=== PATIENT | female | born 1960 | race Caucasian/White ===

== ENCOUNTER 2017-06-30 07:11 | Day surgery (SDC) | payer MEDICARE ==
[~2017-06-30 07:11] MED LIST: Cefuroxime 10 MG/ML SYRINGE EYERT SCH; Lidocaine 1% PF 2 ML SDV INJECT SCH; Pilocarpine 4% Ophth Soln 15 ML Bot EYERT SCH; Polymyxin B/Trimethoprim 10 ML Bottle EYERT SCH
[2017-06-30] MEDS: Ofloxacin 0.3% Ophth Soln 5 ML Bottle EYERT SCH ×3 (07:17→08:32)
[2017-06-30] MEDS: Brimonidine 0.2% Ophth Soln 5 ML Bottle EYERT SCH ×3 (07:22→08:32)
[2017-06-30] MEDS: Phenylephrine 2.5% Ophth Soln 2 ML Bot EYERT SCH ×5 (07:29→08:17)
--- NOTE | 2017-06-30 07:38 | PCM.PREANE ---
Preanesthetic Assessment - Anesthesia/Transfusion/Family Hx Anesthesia History: Prior Anesthesia Without Reaction Family History of Anesthesia Reaction: No Transfusion History: No Prior Transfusion(s) Intubation History: Unknown - Review of Systems General: No Symptoms Pulmonary: No Symptoms Cardiovascular: No Symptoms Gastrointestinal: No Symptoms Neurological: No Symptoms Other: Reports: None - Physical Assessment NPO Status Date: 06/29/17 NPO Status Time: 17:00 Pulse: 58 O2 Sat by Pulse Oximetry: 92 Respiratory Rate: 16 Blood Pressure: 114/70 Temperature: 97.9 C Vital Signs: Last Vital Signs Temp 36.6 C 06/30/17 07:10 Pulse 58 L 06/30/17 07:10 Resp 16 06/30/17 07:10 BP 114/70 06/30/17 07:10 Pulse Ox 92 L 06/30/17 07:10 Height: 1.63 m Weight: 90.718 kg ASA Class: 2 Mental Status: Alert & Oriented x3 Airway Class: Mallampati = 1 Dentition: Reports: Dentures (upper/lower) Thyro-Mental Finger Breadths: 3 Mouth Opening Finger Breadths: 3 ROM/Head Extension: Full Lungs: Wheezing (exp wheeze noted bilat, clears with coughing) Cardiovascular: Regular Rate, Regular Rhythm - Allergies Allergies/Adverse Reactions: Allergies Allergy/AdvReac Type Severity Reaction Status Date / Time buspirone HCl [From BuSpar] Allergy Swelling Verified 06/29/17 14:21 carbamazepine [From Tegretol] Allergy Other Verified 06/29/17 14:21 diclofenac [From Arthrotec] Allergy Cannot Verified 06/29/17 14:21 Remember divalproex sodium Allergy Other Verified 06/29/17 14:21 [From Depakote] donepezil HCl [From Aricept] Allergy Other Verified 06/29/17 14:21 gabapentin [From Neurontin] Allergy Other Verified 06/29/17 14:21 memantine HCl [From Namenda] Allergy Other Verified 06/29/17 14:21 misoprostol [From Arthrotec] Allergy Cannot Verified 06/29/17 14:21 Remember Sulfa (Sulfonamide Allergy Other Verified 06/29/17 14:21 Antibiotics) acetaminophen [From Percocet] AdvReac Nausea and Verified 06/29/17 14:21 Vomiting oxycodone HCl [From Percocet] AdvReac Nausea and Verified 06/29/17 14:21 Vomiting propoxyphene napsylate AdvReac Nausea and Verified 06/29/17 14:21 [From Rogelio] Vomiting - Anesthesia Plan Beta Urbano: Propranolol Med Last Dose Date: 06/29/17 Med Last Dose Time: 07:00 - Acknowledgements Anesthesia Type Planned: MAC Pt an Appropriate Candidate for the Planned Anesthesia: Yes Alternatives and Risks of Anesthesia Discussed w Pt/Guardian: Yes Pt/Guardian Understands and Agrees with Anesthesia Plan: Yes PreAnesthesia Questionnaire HEENT History: Reports: Impaired Vision Cardiovascular History: Reports: None Respiratory History: Reports: Asthma, COPD, SOB (with exertion) Gastrointestinal History: Reports: None Musculoskeletal History: Reports: None Neurological History: Reports: 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, "couple years ago"), Migraines (takes propranolol), Other (See Below) Other Neuro History: early onset cognitive disorder Psychiatric History: Reports: None Other Psychiatric History: early cognitive inhaler Endocrine/Metabolic History: Reports: None Hematologic History: Reports: None Immunologic History: Reports: None Oncologic (Cancer) History: Reports: None - Infectious Disease History Infectious Disease History: Reports: MRSA - Past Surgical History Head Surgeries/Procedures: Reports: None HEENT Surgical History: Reports: None, Tonsillectomy Cardiovascular Surgical History: Reports: None Respiratory Surgical History: Reports: None GI Surgical History: Reports: Cholecystectomy Female Surgical History: Reports: Section Endocrine Surgical History: Reports: None Neurological Surgical History: Reports: None Musculoskeletal Surgical History: Reports: None Oncologic Surgical History: Reports: None Dermatological Surgical History: Reports: None - SUBSTANCE USE Smoking Status *Q: Current Every Day Smoker Recreational Drug Use History: No - HOME MEDS Home Medications: Home Meds ClonazePAM [KlonoPIN] 0.5 mg PO BEDTIME 04/12/15 [History] Escitalopram [Lexapro] 20 mg PO DAILY 04/12/15 [History] Propranolol [Inderal LA] 80 mg PO DAILY 04/12/15 [History] lamoTRIgine [Lamictal] 400 mg PO BEDTIME 04/12/15 [History] Montelukast [Singulair] 10 mg PO DAILY 06/29/17 [History] SUMAtriptan [Imitrex] 50 mg PO ASDIRECTED PRN 06/29/17 [History] Tiotropium Br/Olodaterol HCl [Stiolto Respimat Inhal [place]] 1 puff INH DAILY [History] - CURRENT (IN HOUSE) MEDS Current Meds: Current Medications Brimonidine Tartrate (Alphagan 0.2% Ophth Soln) 0 ml EYERT ASDIRECTED PINA Last Admin: 06/30/17 07:22 Dose: 1 drop Cefuroxime Sodium (Zinacef) 0 mg EYERT ASDIRECTED PINA Lidocaine HCl (Xylocaine-Mpf 1%) 1 ml INJECT ASDIRECTED [facility] Ofloxacin (Ocuflox 0.3% Ophth Soln) 0 ml EYERT ASDIRECTED PINA Stop: 06/30/17 16:00 Last Admin: 06/30/17 07:17 Dose: 1 drop Phenylephrine HCl (Adithya-Synephrine 2.5% Ophth Soln) 0 ml EYERT ASDIRECTED PINA Last Admin: 06/30/17 07:29 Dose: 1 drop Pilocarpine HCl (Pilocar 4% Ophth Soln) 0 ml EYERT ASDIRECTED PIAN Tetracaine HCl (Tetracaine 0.5% Steri-Unit Tila) 0 ml EYERT ASDIRECTED PINA Tropicamide (Mydriacyl 1% Ophth Soln) 0 ml EYERT ASDIRECTED PINA Stop: 07/03/17 07:01 Discontinued Medications Polymyxin/Trimethoprim Sulfate (Polytrim Ophth Soln) 0 ml EYERT ASDIRECTED PINA
[2017-06-30] MEDS: Tetracaine HCl/PF 0.5% 4 ML Bottle EYERT SCH ×2 (08:10→08:48)
--- NOTE | 2017-06-30 08:35 | PCM48HPAN ---
Post Anesthesia Note - EVALUATION WITHIN 48HRS OF ANESTHETIC Vital Signs in Normal Range: Yes Patient Participated in Evaluation: Yes Respiratory Function Stable: Yes Airway Patent: Yes Cardiovascular Function Stable: Yes Hydration Status Stable: Yes Pain Control Satisfactory: Yes Nausea and Vomiting Control Satisfactory: Yes Mental Status Recovered: Yes
[2017-06-30 08:49] VITALS: BP 112/66
== END 2017-06-30 08:44 | disposition home or self-care (01) ==
LOC: JD.SDS 07:11
PROVIDERS: ATTEND Ophthalmology
DX: H25.813 Combined forms of age-related cataract, bilateral (principal); H16.103 Unspecified superficial keratitis, bilateral; H16.223 Keratoconjunctivitis sicca, not specified as Sjogren's, bilateral; H02.834 Dermatochalasis of left upper eyelid; H02.831 Dermatochalasis of right upper eyelid; J44.9 Chronic obstructive pulmonary disease, unspecified; F17.200 Nicotine dependence, unspecified, uncomplicated; Z86.73 Personal history of transient ischemic attack (TIA), and cerebral infarction without residual deficits; Z90.89 Acquired absence of other organs; Z90.49 Acquired absence of other specified parts of digestive tract; Z79.899 Other long term (current) drug therapy; Z88.8 Allergy status to other drugs, medicaments and biological substances; Z88.2 Allergy status to sulfonamides; Z88.5 Allergy status to narcotic agent; Z88.6 Allergy status to analgesic agent
CPT/HCPCS: 66984; C1780; J0697; A9270-GY

== ENCOUNTER 2017-09-11 15:08 | Emergency (ER) | payer MEDICARE, MEDICAID, SELFPAY ==
[2017-09-11 15:22] VITALS: BP 120/68
[2017-09-11] MEDS ORDERED: Amoxicillin/Clavulanate K 875-125 MG Tab PO ONE (15:47)
--- NOTE | 2017-09-11 15:53 | EDM.PDOC ---
ED HPI GENERAL MEDICAL PROBLEM - General Chief Complaint: Bite:Animal, Insect Stated Complaint: DOG BITE Time Seen by Provider: 09/11/17 15:37 Source of Information: Reports: Patient History Limitations: Reports: No Limitations - History of Present Illness INITIAL COMMENTS - FREE TEXT/NARRATIVE: Patient is a 57-year-old female who presents to the ED complaining of a dog bite to the inner aspect of the right calf. This happened approximately an hour prior to admission to the ED. Patient states her 2 dogs which are both [place] Spaniels were fighting for food and bit her on the inner aspect of the right lower leg when trying to split them up. She states one of her dogs his up-to- date with immunizations. The other dog she is unsure. She states there is no chance of having rabies. Both dogs have been acting appropriately. No change in behavior noted. Both dogs can be monitored. Pain is localized. She has minimal bleeding present. Immunizations up-to-date. She has no difficulty with walking. Right Lower Leg Pain Score (Numeric/FACES): 6 - Related Data Allergies Allergy/AdvReac Type Severity Reaction Status Date / Time buspirone HCl [From BuSpar] Allergy Swelling Verified 09/11/17 15:17 carbamazepine [From Tegretol] Allergy Other Verified 09/11/17 15:17 diclofenac [From Arthrotec] Allergy Cannot Verified 09/11/17 15:17 Remember divalproex sodium Allergy Other Verified 09/11/17 15:17 [From Depakote] donepezil HCl [From Aricept] Allergy Other Verified 09/11/17 15:17 gabapentin [From Neurontin] Allergy Other Verified 09/11/17 15:17 memantine HCl [From Namenda] Allergy Other Verified 09/11/17 15:17 misoprostol [From Arthrotec] Allergy Cannot Verified 09/11/17 15:17 Remember Sulfa (Sulfonamide Allergy Other Verified 09/11/17 15:17 Antibiotics) acetaminophen [From Percocet] AdvReac Nausea and Verified 09/11/17 15:17 Vomiting oxycodone HCl [From Percocet] AdvReac Nausea and Verified 09/11/17 15:17 Vomiting propoxyphene napsylate AdvReac Nausea and Verified 09/11/17 15:17 [From Darvocet-N] Vomiting Home Meds: Home Meds ClonazePAM [KlonoPIN] 0.5 mg PO BEDTIME 04/12/15 [History] Escitalopram [Lexapro] 20 mg PO DAILY 04/12/15 [History] Propranolol [Inderal LA] 80 mg PO DAILY 04/12/15 [History] lamoTRIgine [Lamictal] 200 mg PO BEDTIME 04/12/15 [History] Montelukast [Singulair] 10 mg PO DAILY 06/29/17 [History] SUMAtriptan [Imitrex] 50 mg PO ASDIRECTED PRN 06/29/17 [History] Tiotropium Br/Olodaterol HCl [Stiolto Respimat Inhal Pana] 1 puff INH DAILY [History] Amoxicillin/Clavulanate K [Augmentin 875-125 MG] 1 tab PO BID #20 tablet [Rx] Past Medical History HEENT History: Reports: Impaired Vision Cardiovascular History: Reports: None Respiratory History: Reports: Asthma, COPD, SOB Gastrointestinal History: Reports: None Musculoskeletal History: Reports: None Neurological History: Reports: CVA, Migraines, Other (See Below) Other Neuro History: early onset cognitive disorder Psychiatric History: Reports: None Other Psychiatric History: early cognitive inhaler Endocrine/Metabolic History: Reports: None Hematologic History: Reports: None Immunologic History: Reports: None Oncologic (Cancer) History: Reports: None - Infectious Disease History Infectious Disease History: Reports: MRSA - Past Surgical History Head Surgeries/Procedures: Reports: None HEENT Surgical History: Reports: None, Tonsillectomy Cardiovascular Surgical History: Reports: None Respiratory Surgical History: Reports: None GI Surgical History: Reports: Cholecystectomy Female Surgical History: Reports: Section Endocrine Surgical History: Reports: None Neurological Surgical History: Reports: None Musculoskeletal Surgical History: Reports: None Oncologic Surgical History: Reports: None Dermatological Surgical History: Reports: None Social & Family History - Family History Family Medical History: Noncontributory - Tobacco Use Smoking Status *Q: Current Every Day Smoker Years of Tobacco use: 25 Packs/Tins Daily: 0.5 - Caffeine Use Caffeine Use: Reports: None - Recreational Drug Use Recreational Drug Use: Yes Drug Use in Last 12 Months: No Recreational Drug Type: Reports: Marijuana/Hashish ED ROS GENERAL - Review of Systems Review Of Systems: ROS reveals no pertinent complaints other than HPI. ED EXAM, ANIMAL BITE - Physical Exam Exam: See Below Exam Limited By: No Limitations General Appearance: Alert, WD/WN, No Apparent Distress Ears: Hearing Grossly Normal Nose: Normal Inspection Throat/Mouth: Normal Voice, No Airway Compromise Neck: Normal Inspection, Supple Respiratory/Chest: No Respiratory Distress, No Accessory Muscle Use Cardiovascular: Normal Peripheral Pulses, Regular Rate, Rhythm Peripheral Pulses: 3+: Posterior Tibial (R) Extremities: Other (Approximate 4 cm x 4 cm circular pattern to the right inner calf with a few puncture wounds with no bleeding present from a dog bite by his fingers panel. Faint bruising noted around this area. No bony tenderness with palpation. No bony abdomen abnormalities noted. No sensory/motor deficits distally. She offers no additional plans with palpation of the remaining portion of the extremity. There is a small bruise noted to the lateral aspect of the right lower leg secondary to previous dog bite earlier this morning. ) Neurological: Alert, Oriented, CN II-XII Intact, Normal Cognition, No Motor/ Sensory Deficits Psychiatric: Normal Affect, Normal Mood Skin Exam: Normal Color, Warm/Dry Course - Vital Signs Last Recorded V/S: Last Vital Signs Temp 98.2 F 09/11/17 15:20 Pulse 67 09/11/17 15:20 Resp 18 09/11/17 15:20 BP 120/68 09/11/17 15:20 Pulse Ox 93 L 09/11/17 15:20 - Orders/Labs/Meds Meds: Medications Discontinued Medications Generic Name Dose Route Start Last Admin Trade Name Antonioq PRN Reason Stop Dose Admin Amoxicillin/Clavulanate Potassium 1 tab 09/11/17 15:47 09/11/17 16:05 Augmentin 875 Mg/125 Mg PO 09/11/17 15:48 1 tab ONETIME ONE Administration - Re-Assessments/Exams Free Text/Narrative Re-Assessment/Exam: Wounds cleansed by nursing staff. Ordered Augmentin 875 mg by mouth 1. Will discharge patient home with instructions as documented. Departure - Departure Time of Disposition: 15:52 Disposition: Home, Self-Care 01 Condition: Good Clinical Impression: Dog bite of calf Qualifiers: Encounter type: initial encounter Laterality: right Qualified Code(s): S81.851A - Open bite, right lower leg, initial encounter - Discharge Information Prescriptions: Amoxicillin/Clavulanate K [Augmentin 875-125 MG] 1 tab PO BID #20 tablet Instructions: Animal Bite Referrals: Holly Turcios MD [Primary Care Provider] - Forms: ED Department Discharge Additional Instructions: Take the Augmentin as prescribed. Cleanse site twice daily with soap and water, pat dry, reapply Triple Antibiotic ointment and dressing. Keep area clean and dry. Follow-up with PCP a conclusion of therapy to ensure resolution. Return to the ED if you develop any new or worsening symptoms. Continue to monitor dog with unknown vaccination status. See a vet in the next week or so to have the immunizations updated.
== END 2017-09-11 16:00 | disposition home or self-care (01) ==
LOC: JD.ED 15:08
DX: S81.851A Open bite, right lower leg, initial encounter (principal); F17.210 Nicotine dependence, cigarettes, uncomplicated; Z88.8 Allergy status to other drugs, medicaments and biological substances; Z88.2 Allergy status to sulfonamides; Z88.6 Allergy status to analgesic agent; Z88.5 Allergy status to narcotic agent; Z79.899 Other long term (current) drug therapy; W54.0XXA Bitten by dog, initial encounter
CPT/HCPCS: 99283; A9270

== ENCOUNTER 2018-10-09 04:52 | Inpatient (IN) | payer MEDICARE ==
[2018-10-09] MEDS ORDERED: Dextrose 5%-0.9% NaCl 1,000 ML IV SCH (05:00)
[2018-10-09] MEDS ORDERED: Albuterol/Ipratropium 3.0-0.5 MG/3 ML Neb Soln NEB ONE (05:01)
--- NOTE | 2018-10-09 05:05 | EDM.PDOC ---
ED HPI GENERAL MEDICAL PROBLEM - General Chief Complaint: Respiratory Problem Stated Complaint: [facility] Time Seen by Provider: 10/09/18 04:58 Source of Information: Reports: Patient, EMS History Limitations: Reports: Respiratory Distress - History of Present Illness INITIAL COMMENTS - FREE TEXT/NARRATIVE: 58-year-old female presents to the ED per [place] [facility]. She reports that she's been ill for about 3-1/2 days with development of a nonproductive cough and increasing shortness of breath. She has not slept well at all the last 2 nights not at all tonight. She considers herself gurgling in her chest. She has a history of COPD with asthma component. She uses a hand-held metered-dose albuterol inhaler without relief last few days. She usually smokes a pack per day has been only able to smoke 2-5 cigarettes per day the last 2 days. Appetite has been poor. She has developed fever and chills with rigors last day. Denies any nausea vomiting or diarrhea. Has not been able to expectorate any phlegm. Has not been around anybody that she knows with influenza. She does not have any pleuritic chest pain. No history of coronary disease or congestive failure. Paramedics report her O2 sats were 85% upon their arrival and she was placed on a nonrebreather at 10 L/m. In the ED she was switched to nasal cannula at 4 L/m. Is achieved O2 sats of 88%. Blood pressure is 149/79. She does not feel warm to palpation. Patient has been using Robitussin cough medicine at home for the last 2 days without much relief. Onset: Gradual Onset Date: 10/06/18 Duration: Day(s):, Getting Worse Location: Reports: Chest (Increased dyspnea on minimal exertion with associated associated orthopnea and PND. Nonproductive cough with associated development of rigors and chills. No defined fever) Quality: Reports: Other (Chills/rigors with) Severity: Severe (nonproductive cough getting worse over the last 3-1/2 days severe hypoxia on room air) Improves with: Reports: None Worsens with: Reports: Movement Context: Denies: Activity, Exercise, Lifting, Sick Contact, Trauma, Other Associated Symptoms: Reports: Chest Pain (Nonproductive), Cough, Fever/Chills, Loss of Appetite, Malaise, Shortness of Breath, Weakness. Denies: No Other Symptoms, Confusion ( central chest from coughing so much), cough w sputum, Diaphoresis, Headaches (Chills with no defined fever), Nausea/Vomiting, Rash, Seizure, Syncope Treatments [employer]: Reports: Other (see below) (None.) - Related Data Allergies Allergy/AdvReac Type Severity Reaction Status Date / Time buspirone HCl [From BuSpar] Allergy Swelling Verified 10/09/18 05:02 carbamazepine [From Tegretol] Allergy Other Verified 10/09/18 05:02 diclofenac [From Arthrotec] Allergy Cannot Verified 10/09/18 05:02 Remember divalproex sodium Allergy Other Verified 10/09/18 05:02 [From Depakote] gabapentin [From Neurontin] Allergy Other Verified 10/09/18 05:02 misoprostol [From Arthrotec] Allergy Cannot Verified 10/09/18 05:02 Remember Sulfa (Sulfonamide Allergy Other Verified 10/09/18 05:02 Antibiotics) acetaminophen [From Percocet] AdvReac Nausea and Verified 10/09/18 05:02 Vomiting oxycodone HCl [From Percocet] AdvReac Nausea and Verified 10/09/18 05:02 Vomiting propoxyphene napsylate AdvReac Nausea and Verified 10/09/18 05:02 [From Darvocet-N] Vomiting Home Meds: Home Meds ClonazePAM [KlonoPIN] 0.5 mg PO BEDTIME 04/12/15 [History] Propranolol [Inderal LA] 80 mg PO DAILY 04/12/15 [History] lamoTRIgine [Lamictal] 200 mg PO BEDTIME 04/12/15 [History] Montelukast [Singulair] 10 mg PO BEDTIME 06/29/17 [History] Tiotropium Br/Olodaterol HCl [Stiolto Respimat Inhal Webb] 1 puff INH BEDTIME 06/29/17 [History] Escitalopram [Lexapro] 20 mg PO DAILY 03/29/18 [History] Fluticasone Furoate [Arnuity Ellipta] 1 dose INH ASDIRECTED 03/29/18 [History] SUMAtriptan [Imitrex] 50 mg PO ASDIRECTED PRN 03/29/18 [History] Past Medical History HEENT History: Reports: Impaired Vision Cardiovascular History: Reports: None Respiratory History: Reports: Asthma, COPD (Not on oxygen at home. Still smoking usually a pack per day.), SOB Gastrointestinal History: Reports: None Musculoskeletal History: Reports: None Neurological History: Reports: CVA, Migraines, Other (See Below) Other Neuro History: early onset cognitive disorder Psychiatric History: Reports: None Other Psychiatric History: early cognitive inhaler Endocrine/Metabolic History: Reports: None Hematologic History: Reports: None Immunologic History: Reports: None Oncologic (Cancer) History: Reports: None - Infectious Disease History Infectious Disease History: Reports: MRSA - Past Surgical History Head Surgeries/Procedures: Reports: None HEENT Surgical History: Reports: None, Tonsillectomy Cardiovascular Surgical History: Reports: None Respiratory Surgical History: Reports: None GI Surgical History: Reports: Cholecystectomy Female Surgical History: Reports: Section Endocrine Surgical History: Reports: None Neurological Surgical History: Reports: None Musculoskeletal Surgical History: Reports: None Oncologic Surgical History: Reports: None Dermatological Surgical History: Reports: None Social & Family History - Family History Family Medical History: Noncontributory - Caffeine Use Caffeine Use: Reports: None - Living Situation & Occupation Living situation: Reports: Occupation: Employed ED ROS GENERAL - Review of Systems Review Of Systems: See Below Constitutional: Reports: Chills, Malaise, Weakness, Fatigue, Decreased Appetite HEENT: Reports: Glasses Respiratory: Reports: Shortness of Breath, Wheezing, Cough. Denies: Pleuritic Chest Pain, Sputum, Hemoptysis Cardiovascular: Reports: Chest Pain (Central chest pain from coughing so much), Blood Pressure Problem, Dyspnea on Exertion, Lightheadedness. Denies: Claudication, Edema (From coughing at times.), Orthopnea Endocrine: Reports: Fatigue GI/Abdominal: Reports: Decreased Appetite : Reports: No Symptoms Musculoskeletal: Reports: Joint Pain (Knees hips back at times) Skin: Reports: No Symptoms Neurological: Reports: No Symptoms Psychiatric: Reports: No Symptoms Hematologic/Lymphatic: Reports: No Symptoms Immunologic: Reports: No Symptoms ED EXAM, GENERAL - Physical Exam Exam: See Below Exam Limited By: Respiratory Distress General Appearance: Alert, WD/WN, Moderate Distress (Can speak in 3-5 word sentences.), Other (O2 sats are 85% on room air 90% on 4 L. Blood pressure stable at 149/79. Heart rate is 75 in sinus. Respiratory rate is 25.) Eye Exam: Bilateral Eye: Normal Inspection (No scleral icterus.) Ears: Normal TMs Throat/Mouth: Normal Oropharynx, Normal Voice, Other (Tongue is very dry and coated.). No: Normal Inspection, Normal Lips, Normal Teeth Head: Atraumatic, Normocephalic Neck: Normal Inspection, Supple, Non-Tender, Full Range of Motion. No: Lymphadenopathy (L), Lymphadenopathy (R) Respiratory/Chest: Respiratory Distress (Tachypnea at rest 25-28/m with O2 sats of 85% on room air.), Decreased Breath Sounds, Rhonchi (Decreased breath sounds to both lower lung amador worse on the right as compared to the left.), Wheezing ( I appreciated more on the right posterior lung field on the left. effuse wheezing on expiration throughout posterior lung amador. ). No: Lungs Clear, Normal Breath Sounds, Chest Non-Tender Cardiovascular: Normal Peripheral Pulses, Regular Rate, Rhythm, No Edema, No Gallop, No Murmur, No Rub Peripheral Pulses: 2+: Posterior Tibial (L), Posterior Tibial (R), Dorsalis Pedis (L), Dorsalis Pedis (R) GI/Abdominal: Normal Bowel Sounds, Soft, Non-Tender, No Organomegaly, No Abnormal Bruit, No Mass, Pelvis Stable, Distended (Slightly distended and tympanitic to percussion in the upper abdomen compatible with mild aerophagia.) Back Exam: Normal Inspection, Full Range of Motion. No: CVA Tenderness (L), CVA Tenderness (R) Extremities: Normal Inspection, Normal Range of Motion, Non-Tender Neurological: Alert, Oriented, CN II-XII Intact, Normal Cognition Psychiatric: Normal Affect Skin Exam: Warm, Dry, Intact, Normal Color, No Rash EKG INTERPRETATION EKG Date: 10/09/18 Time: 05:10 Rhythm: NSR (Markedly wandering baseline due to the patient having rigors.) Rate (Beats/Min): 68 [place]: LAD-Left [place] Deviation (-65) P-Wave: Enlarged (Consider biatrial enlargement) QRS: Other (There is decreased voltage in both limb and precordial leads. Is early R-wave transition in V2 suggestive of right ventricular hypertrophy pattern. 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 Cannot rule out ischemia.) EKG Interpretation Comments: Abnormal ECG. Course - Vital Signs Last Recorded V/S: Last Vital Signs Temp 36.9 C 10/09/18 04:57 Pulse 74 10/09/18 04:57 Resp 25 H 10/09/18 04:57 BP 149/79 H 10/09/18 04:57 Pulse Ox 89 L 10/09/18 05:09 - Orders/Labs/Meds Orders: Active Orders 24 hr Category Date Time Status BIPAP Adult [RT BiPAP/CPAP] [RC] ASDIRECTED Care 10/09/18 05:49 Active EKG Documentation Completion [RC] STAT Care 10/09/18 04:59 Active Oxygen Therapy [RC] ASDIRECTED Care 10/09/18 05:00 Active RT Aerosol Therapy [RC] ASDIRECTED Care 10/09/18 05:01 Active Chest 1V Frontal [CR] Stat Exams 10/09/18 04:59 Taken C-REACTIVE PROTEIN [CHEM] Stat Lab 10/09/18 05:18 Results CKMB [CHEM] Stat Lab 10/09/18 05:18 Results COMPREHENSIVE METABOLIC PN,CMP [CHEM] Stat Lab 10/09/18 05:18 Results CULTURE BLOOD [BC] Stat Lab 10/09/18 05:18 Received CULTURE BLOOD [BC] Stat Lab 10/09/18 05:30 Received MAGNESIUM [CHEM] Stat Lab 10/09/18 05:18 Results MYCOPLASMA PNEUMONIAE IGM AB [CHEM] Stat Lab 10/09/18 05:18 Results PRO B-TYPE NATRIUR PEPT,BNPPRO [CHEM] Stat Lab 10/09/18 05:18 Received TROPONIN I [CHEM] Stat Lab 10/09/18 05:18 Results Dextrose 5%-0.9% NaCl [Dextrose 5%-Normal Saline] 1,000 Med 10/09/18 05:00 Active ml IV ASDIRECTED Levofloxacin/Dextrose 5%-Water [Levaquin in D5W 750 MG/ Med 10/09/18 05:47 Active 150 ML] 750 mg Premix Bag 1 bag IV ONETIME Blood Culture x2 Reflex Set [OM.PC] Stat Oth 10/09/18 05:00 Ordered Medication Orders Dextrose/Sodium Chloride (Dextrose 5%-Normal Saline) 1,000 mls @ 999 mls/hr IV ASDIRECTED PINA Last Admin: 10/09/18 05:29 Dose: 999 mls/hr Levofloxacin/Dextrose 750 mg/ (Premix) 150 mls @ 100 mls/hr IV ONETIME ONE Stop: 10/09/18 07:16 Last Admin: 10/09/18 05:51 Dose: 100 mls/hr Labs: Laboratory Tests 10/09/18 10/09/18 10/09/18 Range/Units 05:15 05:18 05:18 WBC 10.46 H (3.98-10.04) K/mm3 RBC 5.11 (3.98-5.22) M/mm3 Hgb 15.9 H (11.2-15.7) gm/L Hct 48.6 H (34.1-44.9) % MCV 95.1 H (79.4-94.8) fl MCH 31.1 (25.6-32.2) pg MCHC 32.7 (32.2-35.5) g/dl RDW Std Deviation 52.8 H (36.4-46.3) fL Plt Count 223 (182-369) K/mm3 MPV 9.3 L (9.4-12.3) fl Neutrophils % (Manual) 72 H (40-60) % Band Neutrophils % 0 (0-10) % Lymphocytes % (Manual) 16 L (20-40) % Atypical Lymphs % 0 % Monocytes % (Manual) 8 (2-10) % Eosinophils % (Manual) 2 (0.7-5.8) % Basophils % (Manual) 2 H (0.1-1.2) Platelet Estimate Adequate RBC Morph Comment Normal Puncture Site Lt radial ABG pH 7.42 (7.35-7.45) ABG pCO2 37.4 (35.0-45.0) mmHg ABG pO2 50.0 L (80.0-100.0) mmHg ABG HCO3 23.9 (22.0-26.0) meq/L ABG O2 Saturation 88.7 L (96.0-97.0) % ABG Base Excess 0.3 (-2-2.0) Nabil Test Positive A-a Gradient 159 mmHg O2 Delivery Device Cannula Oxygen Flow Rate 5.0 FiO2 40.00 (21.00-100.00) % Blood Gas Comments Sodium 140 (136-145) mEq/L Potassium 4.3 (3.5-5.1) mEq/L Chloride 103 (98-107) mEq/L Carbon Dioxide 28 (21-32) mEq/L Anion Gap 13.3 (5-15) BUN 9 (7-18) mg/dL Creatinine 0.9 (0.55-1.02) mg/dL Est Cr Clr Drug Dosing 59.55 mL/min Estimated GFR (MDRD) > 60 (>60) mL/min BUN/Creatinine Ratio 10.0 L (14-18) Glucose 132 H (74-106) mg/dL Lactic Acid (0.4-2.0) mmol/L Calcium 9.1 (8.5-10.1) mg/dL Magnesium 1.6 L (1.8-2.4) mg/dl Total Bilirubin 0.4 (0.2-1.0) mg/dL AST 25 (15-37) U/L ALT 27 (14-59) U/L Alkaline Phosphatase 98 (46-116) U/L CK-MB (CK-2) < 0.5 (0-3.6) ng/ml Troponin I < 0.017 (0.00-0.056) ng/mL C-Reactive Protein 4.7 H* (<1.0) mg/dL Total Protein 7.6 (6.4-8.2) g/dl Albumin 3.3 L (3.4-5.0) g/dl Globulin 4.3 gm/dL Albumin/Globulin Ratio 0.8 L (1-2) 10/09/18 10/09/18 Range/Units 05:30 06:30 WBC (3.98-10.04) K/mm3 RBC (3.98-5.22) M/mm3 Hgb (11.2-15.7) gm/L Hct (34.1-44.9) % MCV (79.4-94.8) fl MCH (25.6-32.2) pg MCHC (32.2-35.5) g/dl RDW Std Deviation (36.4-46.3) fL Plt Count (182-369) K/mm3 MPV (9.4-12.3) fl Neutrophils % (Manual) (40-60) % Band Neutrophils % (0-10) % Lymphocytes % (Manual) (20-40) % Atypical Lymphs % % Monocytes % (Manual) (2-10) % Eosinophils % (Manual) (0.7-5.8) % Basophils % (Manual) (0.1-1.2) Platelet Estimate RBC Morph Comment Puncture Site Rt radial ABG pH 7.38 (7.35-7.45) ABG pCO2 37.4 (35.0-45.0) mmHg ABG pO2 66.0 L (80.0-100.0) mmHg ABG HCO3 21.4 L (22.0-26.0) meq/L ABG O2 Saturation 94.5 L (96.0-97.0) % ABG Base Excess -2.9 L (-2-2.0) Nabil Test A-a Gradient mmHg O2 Delivery Device Bipap Oxygen Flow Rate 8.0 FiO2 (21.00-100.00) % Blood Gas Comments Bipap 10/5 Sodium (136-145) mEq/L Potassium (3.5-5.1) mEq/L Chloride (98-107) mEq/L Carbon Dioxide (21-32) mEq/L Anion Gap (5-15) BUN (7-18) mg/dL Creatinine (0.55-1.02) mg/dL Est Cr Clr Drug Dosing mL/min Estimated GFR (MDRD) (>60) mL/min BUN/Creatinine Ratio (14-18) Glucose (74-106) mg/dL Lactic Acid 1.2 (0.4-2.0) mmol/L Calcium (8.5-10.1) mg/dL Magnesium (1.8-2.4) mg/dl Total Bilirubin (0.2-1.0) mg/dL AST (15-37) U/L ALT (14-59) U/L Alkaline Phosphatase (46-116) U/L CK-MB (CK-2) (0-3.6) ng/ml Troponin I (0.00-0.056) ng/mL C-Reactive Protein (<1.0) mg/dL Total Protein (6.4-8.2) g/dl Albumin (3.4-5.0) g/dl Globulin gm/dL Albumin/Globulin Ratio (1-2) Meds: Medications Generic Name Dose Route Start Last Admin Trade Name Freq PRN Reason Stop Dose Admin Dextrose/Sodium Chloride 1,000 mls @ 999 mls/hr 10/09/18 05:00 10/09/18 05:29 Dextrose 5%-Normal Saline IV 999 mls/hr ASDIRECTED PINA Administration Levofloxacin/Dextrose 750 mg/ 150 mls @ 100 mls/hr 10/09/18 05:47 10/09/18 05 :51 Premix IV 10/09/18 07:16 100 mls/hr ONETIME ONE Administration Discontinued Medications Generic Name Dose Route Start Last Admin Trade Name Freq PRN Reason Stop Dose Admin Albuterol/Ipratropium 3 ml 10/09/18 05:01 10/09/18 05:09 Duoneb 3.0-0.5 Mg/3 Ml NEB 10/09/18 05:02 3 ml ONETIME ONE Administration Oseltamivir Phosphate 75 mg 10/09/18 05:53 10/09/18 06:00 Tamiflu PO 10/09/18 05:54 75 mg ONETIME ONE Administration - Radiology Interpretation Free Text/Narrative:: 58-year-old female presents to the ED with a 3-1/2 day history of development of upper respiratory tract infection.. Patient has a nonproductive cough and is unable to expectorate any sputum. By history she has COPD and is on 2 inhalers at home one is steroid and one is to try opium. She does not use a home nebulizer machine. She is developed riders/chills the last day and a half. Decreased appetite. She has been unable to sleep all night tonight due to orthopnea and dyspnea at rest. She does not use home oxygen. Paramedics arrived and found her O2 sats to 85% on room air. Examination reveals rhonchi throughout the right posterior lung field primarily slightly at the left base. There is diffuse expiratory wheezes throughout all lung amador. Decreased air entry to the lower lung amador bilaterally of over 30%. History suggests COPD exacerbation. Afebrile at the time of exam. Plan ABGs will be done. At present she is on 4 L/m by nasal cannula to achieve O2 sats of 90%. Her pressure is stable. Septic workup including lactic acid ordered. Blood cultures 2. Suspecting pneumonia right lower lobe. Patient will be treated with a DuoNeb nebulizer treatment. - Re-Assessments/Exams Free Text/Narrative Re-Assessment/Exam: 10/09/18 05:40 ABGs are done. PH is 7.42 with a PCO2 of 37.4. PO2 is 50. Saturations are 89% on 5 L by nasal cannula. By definition she is in respiratory failure. We'll see if she can stand a trial of BiPAP. We'll start at least with 50% FiO2. 10/09/18 05:45 Chest x-ray done portably reveals slightly hyperinflated lung amador. There is possibly a very early pneumonia developing in the right lower lung field. This could also represent mild atelectasis. Cardiac silhouette is normal. I will start her on Levaquin 750 mg IV. 10/09/18 05:53 patient's investigations came back positive for influenza type B. This would explain why her cough is nonproductive. We will start her on Tamiflu 75 mg by mouth at this time. No further labs are yet available. 10/09/18 06:23 White count is 10.46. Differential pending. Hemoglobin is 15.9 with hematocrit of 48.6 suggesting some degree of hemoconcentration. She is also a smoker. Platelet count is 223,000. MCV is mildly elevated at 95.1. Sodium is 140 with a potassium of 4.3. Chloride is 103 with a bicarbonate 28. Anion gap is 13.3. BUN is 9 with a creatinine of 0.9. GFR is greater than 60. Glucose 132. Lactic acid 1.2. Calcium is 9.1. Magnesium slightly low at 1.6. Liver function is normal. CK-MB fraction is less than 0.5 troponin is less than 0.017. C-reactive protein is 4.7. Total protein is 7.6 with an albumin fraction of 3.3. Mycoplasma pneumonia titer is pending. O2 sats are staying around 93% on BiPAP. ABGs will be repeated at 0630 hrs. 10/09/18 06:48 Differential on the white count is now available 72% neutrophils no bands cells reported in 16% lymphocytes. Second ABG done on BiPAP shows a pH of 7.38 with a PCO2 of 37.4. PO2 is up to 66 from 50. Bicarbonate is 21.4 saturations are 94.5%. BiPAP is set at 10/5. I will discuss case with it solutions architect hospitalist Dr. Martin with a view to placing her in the ICU 10/09/18 06:51 I have spoken with Dr. Martni and he has accepted care. Patient be transferred to the ICU when appropriate staff and bed are available. Departure - Departure Time of Disposition: 07:15 Disposition: Admitted As Inpatient 67 Condition: Serious Clinical Impression: Influenza, bronchopneumonia, Nicotine addiction Respiratory failure with hypoxia Qualifiers: Chronicity: acute Qualified Code(s): J96.01 - Acute respiratory failure with hypoxia COPD (chronic obstructive pulmonary disease) Qualifiers: Chronic bronchitis type: unspecified - Discharge Information *PRESCRIPTION DRUG MONITORING PROGRAM REVIEWED*: Not Applicable *COPY OF PRESCRIPTION DRUG MONITORING REPORT IN PATIENT SONIA: Not Applicable Referrals: PCP,None [Primary Care Provider] - Forms: ED Department Discharge - My Orders Last 24 Hours: My Active Orders 10/09/18 04:59 EKG Documentation Completion [RC] STAT Chest 1V Frontal [CR] Stat 10/09/18 05:00 Oxygen Therapy [RC] ASDIRECTED Dextrose 5%-0.9% NaCl [Dextrose 5%-Normal Saline] 1,000 ml IV ASDIRECTED Blood Culture x2 Reflex Set [OM.PC] Stat 10/09/18 05:01 RT Aerosol Therapy [RC] ASDIRECTED 10/09/18 05:18 C-REACTIVE PROTEIN [CHEM] Stat CKMB [CHEM] Stat COMPREHENSIVE METABOLIC PN,CMP [CHEM] Stat CULTURE BLOOD [BC] Stat MAGNESIUM [CHEM] Stat MYCOPLASMA PNEUMONIAE IGM AB [CHEM] Stat PRO B-TYPE NATRIUR PEPT,BNPPRO [CHEM] Stat TROPONIN I [CHEM] Stat 10/09/18 05:30 CULTURE BLOOD [BC] Stat 10/09/18 05:47 Levofloxacin/Dextrose 5%-Water [Levaquin in D5W 750 MG/150 ML] 750 mg Premix Bag 1 bag IV ONETIME 10/09/18 05:49 BIPAP Adult [RT BiPAP/CPAP] [RC] ASDIRECTED - Assessment/Plan Last 24 Hours: My Active Orders 10/09/18 04:59 EKG Documentation Completion [RC] STAT Chest 1V Frontal [CR] Stat 10/09/18 05:00 Oxygen Therapy [RC] ASDIRECTED Dextrose 5%-0.9% NaCl [Dextrose 5%-Normal Saline] 1,000 ml IV ASDIRECTED Blood Culture x2 Reflex Set [OM.PC] Stat 10/09/18 05:01 RT Aerosol Therapy [RC] ASDIRECTED 10/09/18 05:18 C-REACTIVE PROTEIN [CHEM] Stat CKMB [CHEM] Stat COMPREHENSIVE METABOLIC PN,CMP [CHEM] Stat CULTURE BLOOD [BC] Stat MAGNESIUM [CHEM] Stat MYCOPLASMA PNEUMONIAE IGM AB [CHEM] Stat PRO B-TYPE NATRIUR PEPT,BNPPRO [CHEM] Stat TROPONIN I [CHEM] Stat 10/09/18 05:30 CULTURE BLOOD [BC] Stat 10/09/18 05:47 Levofloxacin/Dextrose 5%-Water [Levaquin in D5W 750 MG/150 ML] 750 mg Premix Bag 1 bag IV ONETIME 10/09/18 05:49 BIPAP Adult [RT BiPAP/CPAP] [RC] ASDIRECTED
[2018-10-09] MEDS ORDERED: Levofloxacin/Dextrose 5%-Water 750 MG in Premix Bag 1 BAG IV ONE (05:47)
[2018-10-09] MEDS ORDERED: Oseltamivir 75 MG Cap PO ONE (05:53)
--- NOTE | 2018-10-09 06:55 | CR ---
Chest: Portable view of the chest was obtained. Comparison: Prior chest x-ray of 04/12/15. Heart size and mediastinum are within normal limits. Previous study showed a nodular density within the right upper lung which appears stable and on current exam has the appearance of costochondral calcification. Lungs are clear with no acute parenchymal change. Bony structures are grossly intact. Impression: 1. Nothing acute is seen on portable chest x-ray. Diagnostic code #2
[2018-10-09] MEDS ORDERED: Acetaminophen 325 MG Tab PO PRN (08:14)
[2018-10-09] MEDS ORDERED: SUMAtriptan 50 MG Tab PO PRN (10:03)
[2018-10-09] MEDS ORDERED: Metoprolol Tartrate 5 MG/5 ML SDV IVPUSH PRN (10:04)
[2018-10-09] MEDS ORDERED: hydrALAZINE 20 MG/ML SDV IVPUSH PRN (10:04)
[2018-10-09] MEDS ORDERED: Acetaminophen/HYDROcodone 325-5 MG Tab PO PRN (10:08)
[2018-10-09] MEDS ORDERED: Morphine 2 MG/ML Syringe IVPUSH PRN (10:08)
[2018-10-09] MEDS ORDERED: LORazepam 2 MG/ML SDV IV PRN (10:08)
[2018-10-09] MEDS ORDERED: Ondansetron 4 MG/2 ML SDV IV PRN (10:08)
[2018-10-09] MEDS ORDERED: Bisacodyl 5 MG Tab PO PRN (10:11)
[2018-10-09] MEDS ORDERED: Docusate Sodium 100 MG Cap PO PRN (10:11)
[2018-10-09] MEDS ORDERED: Polyethylene Glycol 3350 Powder 17 GM Packet PO PRN (10:11)
[2018-10-09] MEDS ORDERED: Azithromycin 250 MG in Sodium Chloride 0.9% 250 ML IV ONE (11:00)
[2018-10-09] MEDS: Albuterol/Ipratropium 3.0-0.5 MG/3 ML Neb Soln NEB PRN (11:18)
[2018-10-09] MEDS ORDERED: Magnesium Sulfate/Water 2 GM in Premix Bag 1 BAG IV ONE (13:00)
--- NOTE | 2018-10-09 15:01 | PCM.HP ---
H&P History of Present Illness - General Date of Service: 10/09/18 Admit Problem/Dx: Admission Diagnosis/Problem Admission Diagnosis/Problem Respiratory failure with hypoxia Source of Information: Patient, Family, Old Records, Provider, RN Notes Reviewed History Limitations: Reports: Respiratory Distress - History of Present Illness Initial Comments - Free Text/Narative: This is a 58 yo white female with past medical hx/o Impaired Vision, COPD, Hx/o CVA, Migraines, Hx/o Cognitive Disorder, Allergy, and Nicotine Dependence who comes in for worsening shortness of breath with minimal exertion associated with orthopnea, PND, malaise, weakness, nonproductive cough and chills that started for the past few days. Her symptoms worsen with movement or exertion. She uses her routine home inhalers as well as Robitussin but w/o much improvement. Her last PFT was a little over 2 years ago, done in [place]. She smokes about 1/2ppd since she was 17 years of age. Prior to coming in to ED, she was found by paramedics with an O2 sat of 85% at home. Her initial work up in ED shows a CBC remarkable for WBC of 10.46, Hgb of 15.9, Hct of 48.9, MCV of 95.1, RDW of 52.8, MPV of 9.3, Neutrophils of 72% and Basophils of 2%. Her initial ABG shows a pH of 7.42, pCO2 of 37.4, pO2 of 50, HCO3 of 23.9 with an O2 sat of 88% on 15L of NC. Her Chemistry is significant for BS of 132, Mg of 1.6, CRP of 4.7, and Albumin of 3.3. Her CRX shows nothing acute is seen. She is Influenza B screening positive. Patient is being admitted for influenza B treatment and acute COPD exacerbation. Lower Back Pain Score (Numeric/FACES): 4 - Related Data Allergies/Adverse Reactions: Allergies Allergy/AdvReac Type Severity Reaction Status Date / Time buspirone HCl [From BuSpar] Allergy Swelling Verified 10/09/18 05:02 carbamazepine [From Tegretol] Allergy Other Verified 10/09/18 05:02 diclofenac [From Arthrotec] Allergy Cannot Verified 10/09/18 05:02 Remember divalproex sodium Allergy Other Verified 10/09/18 05:02 [From Depakote] gabapentin [From Neurontin] Allergy Other Verified 10/09/18 05:02 misoprostol [From Arthrotec] Allergy Cannot Verified 10/09/18 05:02 Remember Sulfa (Sulfonamide Allergy Other Verified 10/09/18 05:02 Antibiotics) oxycodone HCl [From Percocet] AdvReac Nausea and Verified 10/09/18 05:02 Vomiting propoxyphene napsylate AdvReac Nausea and Verified 10/09/18 05:02 [From Darvocet-N] Vomiting Home Medications: Home Meds ClonazePAM [KlonoPIN] 0.5 mg PO BEDTIME 04/12/15 [History] lamoTRIgine [Lamictal] 400 mg PO BEDTIME 04/12/15 [History] Montelukast [Singulair] 10 mg PO BEDTIME 06/29/17 [History] Tiotropium Br/Olodaterol HCl [Stiolto Respimat Inhal [place]] 2 puff INH BEDTIME 06/29/17 [History] Escitalopram [Lexapro] 30 mg PO DAILY 03/29/18 [History] Fluticasone Furoate [Arnuity Ellipta] 1 dose INH DAILY 03/29/18 [History] SUMAtriptan [Imitrex] 50 mg PO ASDIRECTED PRN 03/29/18 [History] Albuterol [Ventolin HFA] 2 inh PO Q4H PRN 10/09/18 [History] Propranolol HCl [Inderal Xl] 120 mg PO DAILY 10/09/18 [History] Past Medical History HEENT History: Reports: Cataract, Impaired Vision Cardiovascular History: Reports: None Respiratory History: Reports: Asthma, COPD Gastrointestinal History: Reports: None Genitourinary History: Reports: Urinary Incontinence Musculoskeletal History: Reports: None Neurological History: Reports: CVA, Migraines, Other (See Below) Other Neuro History: early onset cognitive disorder Psychiatric History: Reports: None, Anxiety, Dementia, Depression, Panic Attack Other Psychiatric History: early cognitive inhaler Endocrine/Metabolic History: Reports: Diabetes, Gestational Hematologic History: Reports: None Immunologic History: Reports: None Oncologic (Cancer) History: Reports: None - Infectious Disease History Infectious Disease History: Reports: Chicken Pox, Measles, MRSA - Past Surgical History Head Surgeries/Procedures: Reports: None HEENT Surgical History: Reports: None, Adenoidectomy, Cataract Surgery, Oral Surgery, Tonsillectomy Cardiovascular Surgical History: Reports: None Respiratory Surgical History: Reports: None GI Surgical History: Reports: Cholecystectomy Female Surgical History: Reports: Section Endocrine Surgical History: Reports: None Neurological Surgical History: Reports: None Musculoskeletal Surgical History: Reports: None Oncologic Surgical History: Reports: None Dermatological Surgical History: Reports: None Social & Family History - Family History Family Medical History: Noncontributory Respiratory: Reports: COPD Other Respiratory Family Hisory: father hx - Tobacco Use Smoking Status *Q: Current Every Day Smoker Years of Tobacco use: 20 Packs/Tins Daily: 0.3 Second Hand Smoke Exposure: Yes - Caffeine Use Caffeine Use: Reports: None - Alcohol Use Days Per Week of Alcohol Use: 0 - Recreational Drug Use Recreational Drug Use: Yes Drug Use in Last 12 Months: No - Living Situation & Occupation Living situation: Reports: Occupation: Employed H&P Review of Systems - Review of Systems: Review Of Systems: See Below General: Reports: Chills, Fatigue. Denies: Fever HEENT: Reports: No Symptoms Pulmonary: Reports: Shortness of Breath, Wheezing, Cough Cardiovascular: Reports: Dyspnea on Exertion. Denies: Orthopnea, Lightheadedness, Blood Pressure Problem Gastrointestinal: Denies: Abdominal Pain, Nausea, Vomiting Genitourinary: Reports: No Symptoms Musculoskeletal: Reports: No Symptoms Skin: Denies: Cyanosis, Mottled, Pallor, Diaphoresis, Bruising Psychiatric: Denies: Depression, Anxiety, Agitation, Hallucinations Neurological: Denies: Confusion, Pre-Existing Deficit, Weakness, Gait Disturbance Hematologic/Lymphatic: Reports: No Symptoms Immunologic: Reports: No Symptoms Exam - Exam Exam: See Below - Vital Signs Vital Signs: Last Vital Signs Temp 37.2 C 10/09/18 12:00 Pulse 67 10/09/18 12:08 Resp 20 10/09/18 12:00 BP 96/77 10/09/18 12:08 Pulse Ox 92 L 10/09/18 12:08 Weight: 90.718 kg - Exam Quality Assessment: Supplemental Oxygen General: Alert, Oriented, Cooperative, Other (Obese) HEENT: Conjunctiva Clear, EACs Clear, Hearing Intact, Nares Patent, Normal Nasal Septum, Pupils Equal, Pupils Reactive Neck: Supple, Trachea Midline, Other (accessory muscle use) Lungs: Decreased Breath Sounds, Rhonchi, Wheezing. No: Normal Respiratory Effort Cardiovascular: Tachycardia GI/Abdominal Exam: Normal Bowel Sounds, Soft, Non-Tender, No Organomegaly, No Distention, No Abnormal Bruit (Female) Exam: Deferred Rectal (Female) Exam: Deferred Back Exam: Normal Inspection, Decreased Range of Motion Extremities: Normal Inspection, Normal Range of Motion, Non-Tender, No Pedal Edema, Normal Capillary Refill Peripheral Pulses: 2+: Posterior Tibial (L), Posterior Tibial (R), Dorsalis Pedis (L), Dorsalis Pedis (R) Skin: Warm, Dry, Intact Neuro Extensive - Mental Status: Other (deferred) Neuro Extensive - Motor, Sensory, Reflexes: Other (not appropriate; she is currently on BIPAP) Psychiatric: Alert, Normal Affect, Normal Mood - Patient Data Lab Results Last 24 hrs: Laboratory Results - last 24 hr 10/09/18 10/09/18 10/09/18 Range/Units 05:15 05:18 05:18 WBC 10.46 H (3.98-10.04) K/mm3 RBC 5.11 (3.98-5.22) M/mm3 Hgb 15.9 H (11.2-15.7) gm/L Hct 48.6 H (34.1-44.9) % MCV 95.1 H (79.4-94.8) fl MCH 31.1 (25.6-32.2) pg MCHC 32.7 (32.2-35.5) g/dl RDW Std Deviation 52.8 H (36.4-46.3) fL Plt Count 223 (182-369) K/mm3 MPV 9.3 L (9.4-12.3) fl Neutrophils % (Manual) 72 H (40-60) % Band Neutrophils % 0 (0-10) % Lymphocytes % (Manual) 16 L (20-40) % Atypical Lymphs % 0 % Monocytes % (Manual) 8 (2-10) % Eosinophils % (Manual) 2 (0.7-5.8) % Basophils % (Manual) 2 H (0.1-1.2) Platelet Estimate Adequate RBC Morph Comment Normal Puncture Site Lt radial ABG pH 7.42 (7.35-7.45) ABG pCO2 37.4 (35.0-45.0) mmHg ABG pO2 50.0 L (80.0-100.0) mmHg ABG HCO3 23.9 (22.0-26.0) meq/L ABG O2 Saturation 88.7 L (96.0-97.0) % ABG Base Excess 0.3 (-2-2.0) Nabil Test Positive A-a Gradient 159 mmHg O2 Delivery Device Cannula Oxygen Flow Rate 5.0 FiO2 40.00 (21.00-100.00) % Blood Gas Comments Sodium 140 (136-145) mEq/L Potassium 4.3 (3.5-5.1) mEq/L Chloride 103 (98-107) mEq/L Carbon Dioxide 28 (21-32) mEq/L Anion Gap 13.3 (5-15) BUN 9 (7-18) mg/dL Creatinine 0.9 (0.55-1.02) mg/dL Est Cr Clr Drug Dosing 59.55 mL/min Estimated GFR (MDRD) > 60 (>60) mL/min BUN/Creatinine Ratio 10.0 L (14-18) Glucose 132 H (74-106) mg/dL Lactic Acid (0.4-2.0) mmol/L Calcium 9.1 (8.5-10.1) mg/dL Magnesium 1.6 L (1.8-2.4) mg/dl Total Bilirubin 0.4 (0.2-1.0) mg/dL AST 25 (15-37) U/L ALT 27 (14-59) U/L Alkaline Phosphatase 98 (46-116) U/L CK-MB (CK-2) < 0.5 (0-3.6) ng/ml Troponin I < 0.017 (0.00-0.056) ng/mL C-Reactive Protein 4.7 H* (<1.0) mg/dL NT-Pro-B Natriuret Pep (0-125) pg/mL Total Protein 7.6 (6.4-8.2) g/dl Albumin 3.3 L (3.4-5.0) g/dl Globulin 4.3 gm/dL Albumin/Globulin Ratio 0.8 L (1-2) Mycoplasma pneumon IgM Negative (NEGATIVE) 10/09/18 10/09/18 10/09/18 Range/Units 05:18 05:30 06:30 WBC (3.98-10.04) K/mm3 RBC (3.98-5.22) M/mm3 Hgb (11.2-15.7) gm/L Hct (34.1-44.9) % MCV (79.4-94.8) fl MCH (25.6-32.2) pg MCHC (32.2-35.5) g/dl RDW Std Deviation (36.4-46.3) fL Plt Count (182-369) K/mm3 MPV (9.4-12.3) fl Neutrophils % (Manual) (40-60) % Band Neutrophils % (0-10) % Lymphocytes % (Manual) (20-40) % Atypical Lymphs % % Monocytes % (Manual) (2-10) % Eosinophils % (Manual) (0.7-5.8) % Basophils % (Manual) (0.1-1.2) Platelet Estimate RBC Morph Comment Puncture Site Rt radial ABG pH 7.38 (7.35-7.45) ABG pCO2 37.4 (35.0-45.0) mmHg ABG pO2 66.0 L (80.0-100.0) mmHg ABG HCO3 21.4 L (22.0-26.0) meq/L ABG O2 Saturation 94.5 L (96.0-97.0) % ABG Base Excess -2.9 L (-2-2.0) Nabil Test A-a Gradient mmHg O2 Delivery Device Bipap Oxygen Flow Rate 8.0 FiO2 (21.00-100.00) % Blood Gas Comments Bipap 10/5 Sodium (136-145) mEq/L Potassium (3.5-5.1) mEq/L Chloride (98-107) mEq/L Carbon Dioxide (21-32) mEq/L Anion Gap (5-15) BUN (7-18) mg/dL Creatinine (0.55-1.02) mg/dL Est Cr Clr Drug Dosing mL/min Estimated GFR (MDRD) (>60) mL/min BUN/Creatinine Ratio (14-18) Glucose (74-106) mg/dL Lactic Acid 1.2 (0.4-2.0) mmol/L Calcium (8.5-10.1) mg/dL Magnesium (1.8-2.4) mg/dl Total Bilirubin (0.2-1.0) mg/dL AST (15-37) U/L ALT (14-59) U/L Alkaline Phosphatase (46-116) U/L CK-MB (CK-2) (0-3.6) ng/ml Troponin I (0.00-0.056) ng/mL C-Reactive Protein (<1.0) mg/dL NT-Pro-B Natriuret Pep 69 (0-125) pg/mL Total Protein (6.4-8.2) g/dl Albumin (3.4-5.0) g/dl Globulin gm/dL Albumin/Globulin Ratio (1-2) Mycoplasma pneumon IgM (NEGATIVE) Result Diagrams: 10/10/18 05:30 10/10/18 05:30 Pb Results Last 24 hrs: Microbiology 10/09/18 05:07 Influenza Type A Antigen Screen - Final Nasal Aspirate, Unspecified NEGATIVE INFLUENZA A VIRUS AG Influenza Type B Antigen Screen - Final Positive Influenza B Ag Problem List Initiated/Reviewed/Updated: Yes Orders Last 24hrs: Active Orders 24 hr Category Date Time Status Admission Status [Patient Status] [ADT] Routine ADT 10/09/18 06:54 Active Antiembolic Devices [RC] BID Care 10/09/18 10:10 Active BIPAP Adult [RT BiPAP/CPAP] [RC] ASDIRECTED Care 10/09/18 05:49 Active Cardiac Monitoring [RC] CONTINUOUS Care 10/09/18 10:09 Active Height and Weight [RC] 04 Care 10/09/18 10:08 Active Intake and Output [RC] 04,16 Care 10/09/18 10:09 Active Oxygen Therapy [RC] PRN Care 10/09/18 10:08 Active RT Aerosol Therapy [RC] ASDIRECTED Care 10/09/18 05:01 Active Up With Assistance [RC] ASDIRECTED Care 10/09/18 10:08 Active Up ad Cassy [RC] ASDIRECTED Care 10/09/18 10:08 Active VTE/DVT Education [RC] BID Care 10/09/18 10:08 Active Vital Signs [RC] Q4HR Care 10/09/18 10:08 Active Consult to Case Management/Manager Area [CONS] Cons 10/09/18 10:11 Active Routine Consult to Neck Cutter [CONS] Routine Cons 10/09/18 10:11 Active Consult to Spiritual Care [CONS] Routine Cons 10/09/18 10:11 Active OT Evaluation and Treatment [CONS] Routine Cons 10/09/18 10:11 Active PT Evaluation and Treatment [CONS] Routine Cons 10/09/18 10:11 Active Heart Healthy Diet [DIET] Diet 10/09/18 Breakfast Active BASIC METABOLIC PANEL,BMP [CHEM] AM Lab 10/10/18 05:11 Ordered BASIC METABOLIC PANEL,BMP [CHEM] AM Lab 10/11/18 05:11 Ordered BASIC METABOLIC PANEL,BMP [CHEM] AM Lab 10/12/18 05:11 Ordered C-REACTIVE PROTEIN [CHEM] AM Lab 10/10/18 05:11 Ordered C-REACTIVE PROTEIN [CHEM] AM Lab 10/11/18 05:11 Ordered C-REACTIVE PROTEIN [CHEM] AM Lab 10/12/18 05:11 Ordered CBC WITH AUTO DIFF [HEME] AM Lab 10/10/18 05:11 Ordered CBC WITH AUTO DIFF [HEME] AM Lab 10/11/18 05:11 Ordered CBC WITH AUTO DIFF [HEME] AM Lab 10/12/18 05:11 Ordered CULTURE BLOOD [BC] Stat Lab 10/09/18 05:18 Received CULTURE BLOOD [BC] Stat Lab 10/09/18 05:30 Received CULTURE SPUTUM + SMEAR [RM] Stat Lab 10/09/18 11:45 Ordered MAGNESIUM [CHEM] AM Lab 10/10/18 05:11 Ordered MAGNESIUM [CHEM] AM Lab 10/11/18 05:11 Ordered MAGNESIUM [CHEM] AM Lab 10/12/18 05:11 Ordered Acetaminophen [Tylenol] Med 10/09/18 08:14 Active 650 mg PO Q4H PRN Acetaminophen/HYDROcodone [[place] 325-5 MG] Med 10/09/18 10:08 Active 1 tab PO Q4H PRN Albuterol/Ipratropium [DuoNeb 3.0-0.5 MG/3 ML] Med 10/09/18 10:11 Active 3 ml NEB Q4H PRN Azithromycin [Zithromax] Med 10/10/18 11:00 Active 250 mg PO DAILY@1100 Bisacodyl [Dulcolax] Med 10/09/18 10:11 Active 5 mg PO DAILY PRN ClonazePAM [KlonoPIN] Med 10/09/18 21:00 Active 0.5 mg PO BEDTIME Dextrose 5%-0.9% NaCl [Dextrose 5%-Normal Saline] 1,000 Med 10/09/18 05:00 Active ml IV ASDIRECTED Docusate Sodium [Colace] Med 10/09/18 10:11 Active 100 mg PO BID PRN Docusate Sodium/Sennosides [Senna Plus] Med 10/09/18 10:11 Active 1 tab PO BID PRN LORazepam [Ativan] Med 10/09/18 10:08 Active 1 mg IV Q6H PRN Metoprolol Tartrate [Lopressor] Med 10/09/18 10:04 Active 5 mg IVPUSH Q4H PRN Montelukast [Singulair] Med 10/09/18 21:00 Active 10 mg PO BEDTIME Morphine Med 10/09/18 10:08 Active 2 mg IVPUSH Q2H PRN Ondansetron [Zofran] Med 10/09/18 10:08 Active 4 mg IV Q6H PRN Patient's Own Medication [Ptom] Med 10/09/18 14:00 Active 0 each INH DAILY Patient's Own Medication [Ptom] Med 10/10/18 14:00 Active 0 each PO DAILY Pharmacy to Dose - Magnesium R [Pharmacy to Dose - Med 10/09/18 10:15 Active Magnesium Replacement] 0 dose .XX ASDIRECTED PRN Pharmacy to Dose - Potassium R [Pharmacy to Dose - Med 10/09/18 10:15 Active Potassium Replacement] 0 dose .XX ASDIRECTED PRN Polyethylene Glycol 3350 [MiraLAX] Med 10/09/18 10:11 Active 17 gm PO DAILY PRN Propranolol [Inderal LA] Med 10/10/18 09:00 Active 120 mg PO DAILY SUMAtriptan [Imitrex] Med 10/09/18 10:03 Active 50 mg PO ASDIRECTED PRN hydrALAZINE [Apresoline] Med 10/09/18 10:04 Active 20 mg IVPUSH Q4H PRN lamoTRIgine Med 10/09/18 21:00 Active 400 mg PO BEDTIME Blood Culture x2 Reflex Set [OM.PC] Stat Oth 10/09/18 05:00 Ordered Sequential Compression Device [OM.PC] Per Unit Routine Oth 10/09/18 10:09 Ordered Resuscitation Status Routine Resus Stat 10/09/18 10:08 Ordered Medication Orders Acetaminophen (Tylenol) 650 mg PO Q4H PRN PRN Reason: Pain/Fever Last Admin: 10/09/18 09:02 Dose: 650 mg Hydrocodone Bitart/Acetaminophen ([place] 325-5 Mg) 1 tab PO Q4H PRN PRN Reason: Pain (moderate 4-6) Last Admin: 10/09/18 13:10 Dose: 1 tab Albuterol/Ipratropium (Duoneb 3.0-0.5 Mg/3 Ml) 3 ml NEB Q4H PRN PRN Reason: Shortness Of Breath/wheezing Last Admin: 10/09/18 11:18 Dose: 3 ml Azithromycin (Zithromax) 250 mg PO DAILY@1100 PINA Stop: 10/11/18 11:01 Bisacodyl (Dulcolax) 5 mg PO DAILY PRN PRN Reason: Constipation Clonazepam (Klonopin) 0.5 mg PO BEDTIME PINA Docusate Sodium (Colace) 100 mg PO BID PRN PRN Reason: Constipation Hydralazine HCl (Apresoline) 20 mg IVPUSH Q4H PRN PRN Reason: Hypertension Stop: 10/10/18 12:30 Dextrose/Sodium Chloride (Dextrose 5%-Normal Saline) 1,000 mls @ 999 mls/hr IV ASDIRECTED PINA Last Admin: 10/09/18 05:29 Dose: 999 mls/hr Lamotrigine (Lamotrigine) 400 mg PO BEDTIME PINA Lorazepam (Ativan) 1 mg IV Q6H PRN PRN Reason: Anxiety Stop: 10/10/18 12:30 Magnesium Sulfate (Pharmacy To Dose - Magnesium Replacement) 0 dose .XX ASDIRECTED PRN PRN Reason: RX TO WATCH MAG Stop: 10/10/18 12:30 Metoprolol Tartrate (Lopressor) 5 mg IVPUSH Q4H PRN PRN Reason: Tachycardia Stop: 10/10/18 12:30 Montelukast Sodium (Singulair) 10 mg PO BEDTIME PIAN Morphine Sulfate (Morphine) 2 mg IVPUSH Q2H PRN PRN Reason: Pain (severe 7-10) Stop: 10/10/18 10:10 Ondansetron HCl (Zofran) 4 mg IV Q6H PRN PRN Reason: Nausea/Vomiting Escitalopram 20 Mg (Tab Ptom) 0 each PO DAILY PINA Fluticasone Furoate [Arnuity Ellipta 100mcg] Ptom 0 each INH DAILY PINA Polyethylene Glycol (Miralax) 17 gm PO DAILY PRN PRN Reason: Constipation Potassium Chloride (Pharmacy To Dose - Potassium Replacement) 0 dose .XX ASDIRECTED PRN PRN Reason: RX TO WATCH K Stop: 10/10/18 12:30 Propranolol HCl (Inderal [place]) 120 mg PO DAILY PINA Senna/Docusate Sodium (Senna Plus) 1 tab PO BID PRN PRN Reason: Constipation Sumatriptan Succinate (Imitrex) 50 mg PO ASDIRECTED PRN PRN Reason: migraines Assessment/Plan Comment:: Assessment/Plan: Acute: Influenza B Infection - Influenza Screening Pos - Tamiflu 75 mg po BID for 5 days - Supportive Care and Supplemental O2 COPD Exacerbation - Carries a hx/o COPD - Risk Factors: Active smoker 1ppd for 16 years - Likely 2/2 Acute Viral Infection - IV Solumedrol, Bronchodilators, IV Magnesium, Decongestant/Expectorant - Strep pneumoniae, Mycoplasma pneumoniae, Sputum Cx studies - BIPAP and CXR Chronic: Impaired Vision COPD Hx/o CVA Migraines Hx/o Cognitive Disorder Allergy Nicotine Dependence Plan: Admit to ICU Routine AM Labs Resume Some Home Meds RT/PT/OT assess and treat DVT/GI PPx SW/CM for d/c planning Code status: 1
[2018-10-09] MEDS: FLUTICASONE FUROATE INH SCH ×2 (15:04→17:35)
[2018-10-09] MEDS ORDERED: Tiotropium Inhaler 18 MCG Inhalation Powder Cap Kit of 5 INH STA (15:04)
[2018-10-09] MEDS ORDERED: Glycopyrrolate 15.6 MCG Cap.W.Dev Kit of 6 IH ONE (15:30)
[2018-10-09] MEDS: methylPREDNISolone Sodium Succinate 40 MG/1 ML SDV IVPUSH SCH ×2 (16:05→22:13)
[2018-10-09] MEDS ORDERED: ESCITALOPRAM 20 MG PO ONE (19:15)
[2018-10-09] MEDS: lamoTRIgine 100 MG Tab PO SCH (20:46)
[2018-10-09] MEDS: Oseltamivir 75 MG Cap PO SCH (20:46)
[2018-10-09] MEDS: Montelukast 10 MG Tab PO SCH (20:46)
[2018-10-09] MEDS: ClonazePAM 0.5 MG Tab PO SCH (20:47)
[2018-10-09] MEDS: Albuterol/Ipratropium 3.0-0.5 MG/3 ML Neb Soln NEB SCH (21:50)
[2018-10-09] MEDS ORDERED: Nicotine 21 MG/24 Hr Patch TRDERM PRN (23:01)
[2018-10-10] MEDS: methylPREDNISolone Sodium Succinate 40 MG/1 ML SDV IVPUSH SCH ×4 (03:16→21:08)
[2018-10-10] MEDS: Albuterol/Ipratropium 3.0-0.5 MG/3 ML Neb Soln NEB PRN ×2 (03:24→14:32)
[2018-10-10] MEDS: Albuterol/Ipratropium 3.0-0.5 MG/3 ML Neb Soln NEB SCH ×2 (05:28→20:50)
[2018-10-10] MEDS: Oseltamivir 75 MG Cap PO SCH ×2 (08:03→21:04)
[2018-10-10] MEDS: Propranolol 60 MG Cap.ER PO SCH (08:04)
[2018-10-10] MEDS: FLUTICASONE FUROATE INH SCH (09:04)
[2018-10-10] MEDS: Glycopyrrolate 15.6 MCG Cap.W.Dev Kit of 6 IH SCH ×2 (09:04→20:59)
--- NOTE | 2018-10-10 09:09 | PCM.PN ---
- General Info Date of Service: 10/10/18 Admission Dx/Problem (Free Text): Admission Diagnosis/Problem Admission Diagnosis/Problem Respiratory failure with hypoxia Subjective Update: Follow Up Functional Status: Reports: Pain Controlled, Tolerating Diet, Ambulating, Urinating. Denies: New Symptoms - Review of Systems General: Reports: Weakness. Denies: Fever, Chills HEENT: Reports: No Symptoms Pulmonary: Reports: Shortness of Breath, Cough, Wheezing Cardiovascular: Denies: Chest Pain, Palpitations, Lightheadedness Gastrointestinal: Denies: Abdominal Pain, Nausea, Vomiting Genitourinary: Reports: No Symptoms Musculoskeletal: Reports: No Symptoms Skin: Denies: Cyanosis Neurological: Reports: Weakness. Denies: Confusion, Difficulty Walking, Gait Disturbance Psychiatric: Denies: Depression, Anxiety, Agitation, Hallucinations Systems Review Comment:: No overnight or acute issues. She is now off BIPAP but on 4L NC sating bet 89-91 %. She has no complaints. - Patient Data Vitals - Most Recent: Last Vital Signs Temp 36.3 C 10/10/18 08:00 Pulse 66 10/09/18 16:00 Resp 20 10/10/18 08:00 BP 107/67 10/10/18 08:00 Pulse Ox 89 L 10/10/18 08:00 Weight - Most Recent: 90.265 kg I&O - Last 24 Hours: Intake & Output 10/09/18 10/10/18 10/10/18 22:59 06:59 14:59 Intake Total 1410 600 Output Total 1250 700 Balance 160 -100 Lab Results Last 24 Hours: Laboratory Results - last 24 hr 10/10/18 10/10/18 Range/Units 05:30 05:30 WBC 15.89 H (3.98-10.04) K/mm3 RBC 4.47 (3.98-5.22) M/mm3 Hgb 13.9 D (11.2-15.7) gm/L Hct 42.5 (34.1-44.9) % MCV 95.1 H (79.4-94.8) fl MCH 31.1 (25.6-32.2) pg MCHC 32.7 (32.2-35.5) g/dl RDW Std Deviation 51.0 H (36.4-46.3) fL Plt Count 215 (182-369) K/mm3 MPV 9.4 (9.4-12.3) fl Neut % (Auto) 87.9 H (34.0-71.1) % Lymph % (Auto) 9.3 L (19.3-51.7) % [place] % (Auto) 2.4 L (4.7-12.5) % Eos % (Auto) 0 L (0.7-5.8) Baso % (Auto) 0.1 (0.1-1.2) % Neut # (Auto) 13.96 H (1.56-6.13) K/mm3 Lymph # (Auto) 1.48 (1.18-3.74) K/mm3 [place] # (Auto) 0.38 H (0.24-0.36) K/mm3 Eos # (Auto) 0.00 L (0.04-0.36) K/mm3 Baso # (Auto) 0.02 (0.01-0.08) K/mm3 Manual Slide Review Normal smear Sodium 140 (136-145) mEq/L Potassium 4.1 (3.5-5.1) mEq/L Chloride 105 (98-107) mEq/L Carbon Dioxide 26 (21-32) mEq/L Anion Gap 13.1 (5-15) BUN 13 (7-18) mg/dL Creatinine 0.8 (0.55-1.02) mg/dL Est Cr Clr Drug Dosing 67.00 mL/min Estimated GFR (MDRD) > 60 (>60) mL/min BUN/Creatinine Ratio 16.3 (14-18) Glucose 151 H (74-106) mg/dL Calcium 9.3 (8.5-10.1) mg/dL Magnesium 2.3 (1.8-2.4) mg/dl C-Reactive Protein 23.7 H* (<1.0) mg/dL Pb Results Last 24 Hours: Microbiology 10/09/18 05:30 Aerobic Blood Culture - Preliminary Blood - Venous - Lab Draw NO GROWTH AFTER 1 DAY Anaerobic Blood Culture - Preliminary NO GROWTH AFTER 1 DAY 10/09/18 05:18 Aerobic Blood Culture - Preliminary Blood - Venous NO GROWTH AFTER 1 DAY Anaerobic Blood Culture - Preliminary NO GROWTH AFTER 1 DAY 10/09/18 05:07 Influenza Type A Antigen Screen - Final Nasal Aspirate, Unspecified NEGATIVE INFLUENZA A VIRUS AG Influenza Type B Antigen Screen - Final Positive Influenza B Ag Med Orders - Current: Current Medications Acetaminophen (Tylenol) 650 mg PO Q4H PRN PRN Reason: Pain/Fever Last Admin: 10/09/18 09:02 Dose: 650 mg Hydrocodone Bitart/Acetaminophen ([place] 325-5 Mg) 1 tab PO Q4H PRN PRN Reason: Pain (moderate 4-6) Last Admin: 10/09/18 13:10 Dose: 1 tab Albuterol/Ipratropium (Duoneb 3.0-0.5 Mg/3 Ml) 3 ml NEB Q4H PRN PRN Reason: Shortness Of Breath/wheezing Last Admin: 10/10/18 03:24 Dose: 3 ml Albuterol/Ipratropium (Duoneb 3.0-0.5 Mg/3 Ml) 3 ml NEB BIDRT [facility] Last Admin: 10/10/18 05:28 Dose: 3 ml Azithromycin (Zithromax) 250 mg PO DAILY@1100 [facility] Stop: 10/11/18 11:01 Bisacodyl (Dulcolax) 5 mg PO DAILY PRN PRN Reason: Constipation Last Admin: 10/09/18 20:46 Dose: 5 mg Clonazepam (Klonopin) 0.5 mg PO BEDTIME [facility] Last Admin: 10/09/18 20:47 Dose: 0.5 mg Docusate Sodium (Colace) 100 mg PO BID PRN PRN Reason: Constipation Glycopyrrolate (Seebri Neohaler) 15.6 mcg IH BID [facility] Last Admin: 10/10/18 09:04 Dose: 1 capful Hydralazine HCl (Apresoline) 20 mg IVPUSH Q4H PRN PRN Reason: Hypertension Stop: 10/10/18 12:30 Dextrose/Sodium Chloride (Dextrose 5%-Normal Saline) 1,000 mls @ 999 mls/hr IV ASDIRECTED [facility] Last Admin: 10/09/18 05:29 Dose: 999 mls/hr Lamotrigine (Lamotrigine) 400 mg PO BEDTIME [facility] Last Admin: 10/09/18 20:46 Dose: 400 mg Lorazepam (Ativan) 1 mg IV Q6H PRN PRN Reason: Anxiety Stop: 10/10/18 12:30 Magnesium Sulfate (Pharmacy To Dose - Magnesium Replacement) 0 dose .XX ASDIRECTED PRN PRN Reason: RX TO WATCH MAG Stop: 10/10/18 12:30 Methylprednisolone Sodium Succinate (Solu-Medrol) 60 mg IVPUSH Q6H [facility] Last Admin: 10/10/18 03:16 Dose: 60 mg Metoprolol Tartrate (Lopressor) 5 mg IVPUSH Q4H PRN PRN Reason: Tachycardia Stop: 10/10/18 12:30 Miscellaneous Information (Remove Patch) 1 ea TRDERM Q24H [facility] Last Admin: 10/09/18 23:44 Dose: Not Given Montelukast Sodium (Singulair) 10 mg PO BEDTIME [facility] Last Admin: 10/09/18 20:46 Dose: 10 mg Morphine Sulfate (Morphine) 2 mg IVPUSH Q2H PRN PRN Reason: Dyspnea Stop: 10/10/18 10:10 Nicotine (Habitrol) 21 mg TRDERM DAILY PRN PRN Reason: Nicotine Dependence Ondansetron HCl (Zofran) 4 mg IV Q6H PRN PRN Reason: Nausea/Vomiting Oseltamivir Phosphate (Tamiflu) 75 mg PO BID [facility] Stop: 10/14/18 09:01 Last Admin: 10/10/18 08:03 Dose: 75 mg Escitalopram 20 Mg (Tab Ptom) 0 each PO DAILY [facility] Fluticasone Furoate [Arnuity Ellipta 100mcg] Ptom 0 each INH DAILY [facility] Last Admin: 10/10/18 09:04 Dose: 1 each Polyethylene Glycol (Miralax) 17 gm PO DAILY PRN PRN Reason: Constipation Potassium Chloride (Pharmacy To Dose - Potassium Replacement) 0 dose .XX ASDIRECTED PRN PRN Reason: RX TO WATCH K Stop: 10/10/18 12:30 Propranolol HCl (Inderal La) 120 mg PO DAILY [facility] Last Admin: 10/10/18 08:04 Dose: 120 mg Senna/Docusate Sodium (Senna Plus) 1 tab PO BID PRN PRN Reason: Constipation Sumatriptan Succinate (Imitrex) 50 mg PO ASDIRECTED PRN PRN Reason: migraines Last Admin: 10/10/18 08:10 Dose: 50 mg Terbutaline Sulfate (Brethine) 2.5 mg PO BID [facility] Stop: 10/10/18 21:01 Last Admin: 10/10/18 08:04 Dose: 2.5 mg Discontinued Medications Albuterol/Ipratropium (Duoneb 3.0-0.5 Mg/3 Ml) 3 ml NEB ONETIME ONE Stop: 10/09/18 05:02 Last Admin: 10/09/18 05:09 Dose: 3 ml Glycopyrrolate (Seebri Neohaler) 15.6 mcg IH ONETIME ONE Stop: 10/09/18 15:31 Last Admin: 10/09/18 19:18 Dose: Not Given Levofloxacin/Dextrose 750 mg/ (Premix) 150 mls @ 100 mls/hr IV ONETIME ONE Stop: 10/09/18 07:16 Last Admin: 10/09/18 05:51 Dose: 100 mls/hr Azithromycin 250 mg/ Sodium (Chloride) 250 mls @ 250 mls/hr IV ONETIME ONE Stop: 10/09/18 11:59 Last Admin: 10/09/18 11:35 Dose: 250 mls/hr Magnesium Sulfate 2 gm/ Premix 50 mls @ 25 mls/hr IV ONETIME ONE Stop: 10/09/18 14:59 Last Admin: 10/09/18 13:01 Dose: 25 mls/hr Oseltamivir Phosphate (Tamiflu) 75 mg PO ONETIME ONE Stop: 10/09/18 05:54 Last Admin: 10/09/18 06:00 Dose: 75 mg Escitalopram 20 Mg (Tab Ptom) 0 each PO ONETIME ONE Stop: 10/09/18 19:16 Last Admin: 10/09/18 20:45 Dose: 1 each Terbutaline Sulfate (Brethine) 2.5 mg PO NOW STA Stop: 10/09/18 15:06 Last Admin: 10/09/18 16:05 Dose: 2.5 mg Tiotropium [place] (Spiriva Handihaler) 18 mcg INH NOW STA Stop: 10/09/18 15:05 Last Admin: 10/10/18 09:03 Dose: Not Given - Exam Quality Assessment: Supplemental Oxygen General: Alert, Oriented, Cooperative, No Acute Distress, Other (Obese) HEENT: Pupils Equal, Pupils Reactive, EOMI, Mucous Membr. Moist/[place] Neck: Supple Lungs: Normal Respiratory Effort, Rhonchi Cardiovascular: Regular Rate, Regular Rhythm GI/Abdominal Exam: Normal Bowel Sounds, Soft, Non-Tender, No Organomegaly, No Distention, No Abnormal Bruit, No Mass (Female) Exam: Deferred Back Exam: Normal Inspection, Decreased Range of Motion Extremities: Normal Inspection, Normal Range of Motion, Non-Tender, No Pedal Edema, Normal Capillary Refill Peripheral Pulses: 2+: Dorsalis Pedis (L), Dorsalis Pedis (R) Skin: Warm, Dry, Intact Neurological: No New Focal Deficit, Normal Gait Psy/Mental Status: Alert, Normal Affect, Normal Mood - Problem List Review Problem List Initiated/Reviewed/Updated: Yes - My Orders Last 24 Hours: My Active Orders 10/09/18 08:14 Acetaminophen [Tylenol] 650 mg PO Q4H PRN 10/09/18 10:03 SUMAtriptan [Imitrex] 50 mg PO ASDIRECTED PRN 10/09/18 10:04 Metoprolol Tartrate [Lopressor] 5 mg IVPUSH Q4H PRN hydrALAZINE [Apresoline] 20 mg IVPUSH Q4H PRN 10/09/18 10:08 Height and Weight [RC] 04 Oxygen Therapy [RC] PRN Up With Assistance [RC] ASDIRECTED Up ad Cassy [RC] ASDIRECTED VTE/DVT Education [RC] BID Vital Signs [RC] Q4HR Acetaminophen/HYDROcodone [[place] 325-5 MG] 1 tab PO Q4H PRN LORazepam [Ativan] 1 mg IV Q6H PRN Morphine 2 mg IVPUSH Q2H PRN Ondansetron [Zofran] 4 mg IV Q6H PRN Resuscitation Status Routine 10/09/18 10:09 Cardiac Monitoring [RC] CONTINUOUS Intake and Output [RC] 04,16 Sequential Compression Device [OM.PC] Per Unit Routine 10/09/18 10:10 Antiembolic Devices [RC] BID 10/09/18 10:11 Consult to Case Management/Substance Abuse Therapist [CONS] Routine Consult to Sod Stripper [CONS] Routine Consult to Spiritual Care [CONS] Routine OT Evaluation and Treatment [CONS] Routine PT Evaluation and Treatment [CONS] Routine Albuterol/Ipratropium [DuoNeb 3.0-0.5 MG/3 ML] 3 ml NEB Q4H PRN Bisacodyl [Dulcolax] 5 mg PO DAILY PRN Docusate Sodium [Colace] 100 mg PO BID PRN Docusate Sodium/Sennosides [Senna Plus] 1 tab PO BID PRN Polyethylene Glycol 3350 [MiraLAX] 17 gm PO DAILY PRN 10/09/18 10:15 Pharmacy to Dose - Magnesium R [Pharmacy to Dose - Magnesium Replacement] 0 dose .XX ASDIRECTED PRN Pharmacy to Dose - Potassium R [Pharmacy to Dose - Potassium Replacement] 0 dose .XX ASDIRECTED PRN 10/09/18 11:45 CULTURE SPUTUM + SMEAR [RM] Stat 10/09/18 14:00 Patient's Own Medication [Ptom] 0 each INH DAILY 10/09/18 15:04 RT Aerosol Therapy [RC] ASDIRECTED RT Post Treatment Assessment [RC] Click to Edit RT Pre-Treatment Assessment [RC] Click to Edit 10/09/18 16:00 methylPREDNISolone Sod Succ [Solu-MEDROL] 60 mg IVPUSH Q6H 10/09/18 21:00 Albuterol/Ipratropium [DuoNeb 3.0-0.5 MG/3 ML] 3 ml NEB BIDRT ClonazePAM [KlonoPIN] 0.5 mg PO BEDTIME Montelukast [Singulair] 10 mg PO BEDTIME Oseltamivir [Tamiflu] 75 mg PO BID Remove Patch 1 ea TRDERM Q24H Terbutaline [Brethine] 2.5 mg PO BID lamoTRIgine 400 mg PO BEDTIME 10/09/18 23:01 Nicotine [Habitrol] 21 mg TRDERM DAILY PRN 10/10/18 09:00 Glycopyrrolate [Seebri Neohaler] 15.6 mcg IH BID Propranolol [Inderal LA] 120 mg PO DAILY 10/10/18 11:00 Azithromycin [Zithromax] 250 mg PO DAILY@1100 10/10/18 14:00 Patient's Own Medication [Ptom] 0 each PO DAILY 10/11/18 05:11 BASIC METABOLIC PANEL,BMP [CHEM] AM C-REACTIVE PROTEIN [CHEM] AM CBC WITH AUTO DIFF [HEME] AM MAGNESIUM [CHEM] AM 10/12/18 05:11 BASIC METABOLIC PANEL,BMP [CHEM] AM C-REACTIVE PROTEIN [CHEM] AM CBC WITH AUTO DIFF [HEME] AM MAGNESIUM [CHEM] AM - Plan Plan:: Assessment/Plan: Acute: Influenza B Infection - Influenza Screening Pos - Tamiflu 75 mg po BID for 5 days - Supportive Care and Supplemental O2 COPD Exacerbation, Improved - Carries a hx/o COPD - Risk Factors: Active smoker 1ppd for 16 years - Likely 2/2 Acute Viral Infection - Continue IV Solumedrol, Bronchodilators, IV Magnesium, Decongestant/ Expectorant - Strep pneumoniae, Mycoplasma pneumoniae, Sputum Cx studies - Now off BIPAP and on 4L NC - Blood Cx negative - CXR as indicated Chronic: Impaired Vision COPD Hx/o CVA Migraines Hx/o Cognitive Disorder Allergy Nicotine Dependence Plan: She is doing much better Transfer to [facility] Routine AM Labs RT/PT/OT assess and treat DVT/GI PPx SW/CM for d/c planning Encourage to use FV/IS as directed Goal: Titrate to come off supplemental O2 Code status: 1 Possible discharge in 1-2 days
[2018-10-10] MEDS: Azithromycin 250 MG Tab PO SCH (10:48)
--- NOTE | 2018-10-10 14:04 | PCM.PN ---
- General Info Date of Service: 10/10/18 Admission Dx/Problem (Free Text): Admission Diagnosis/Problem Admission Diagnosis/Problem Respiratory failure with hypoxia Subjective Update: Follow Up Functional Status: Reports: Pain Controlled, Tolerating Diet, Ambulating, Urinating. Denies: New Symptoms - Patient Data Vitals - Most Recent: Last Vital Signs Temp 36.3 C 10/10/18 08:00 Pulse 66 10/09/18 16:00 Resp 20 10/10/18 08:00 BP 107/67 10/10/18 08:00 Pulse Ox 90 L 10/10/18 09:05 Weight - Most Recent: 90.265 kg I&O - Last 24 Hours: Intake & Output 10/09/18 10/10/18 10/10/18 22:59 06:59 14:59 Intake Total 1410 600 240 Output Total 1250 700 400 Balance 160 -100 -160 Lab Results Last 24 Hours: Laboratory Results - last 24 hr 10/10/18 10/10/18 Range/Units 05:30 05:30 WBC 15.89 H (3.98-10.04) K/mm3 RBC 4.47 (3.98-5.22) M/mm3 Hgb 13.9 D (11.2-15.7) gm/L Hct 42.5 (34.1-44.9) % MCV 95.1 H (79.4-94.8) fl MCH 31.1 (25.6-32.2) pg MCHC 32.7 (32.2-35.5) g/dl RDW Std Deviation 51.0 H (36.4-46.3) fL Plt Count 215 (182-369) K/mm3 MPV 9.4 (9.4-12.3) fl Neut % (Auto) 87.9 H (34.0-71.1) % Lymph % (Auto) 9.3 L (19.3-51.7) % [place] % (Auto) 2.4 L (4.7-12.5) % Eos % (Auto) 0 L (0.7-5.8) Baso % (Auto) 0.1 (0.1-1.2) % Neut # (Auto) 13.96 H (1.56-6.13) K/mm3 Lymph # (Auto) 1.48 (1.18-3.74) K/mm3 [place] # (Auto) 0.38 H (0.24-0.36) K/mm3 Eos # (Auto) 0.00 L (0.04-0.36) K/mm3 Baso # (Auto) 0.02 (0.01-0.08) K/mm3 Manual Slide Review Normal smear Sodium 140 (136-145) mEq/L Potassium 4.1 (3.5-5.1) mEq/L Chloride 105 (98-107) mEq/L Carbon Dioxide 26 (21-32) mEq/L Anion Gap 13.1 (5-15) BUN 13 (7-18) mg/dL Creatinine 0.8 (0.55-1.02) mg/dL Est Cr Clr Drug Dosing 67.00 mL/min Estimated GFR (MDRD) > 60 (>60) mL/min BUN/Creatinine Ratio 16.3 (14-18) Glucose 151 H (74-106) mg/dL Calcium 9.3 (8.5-10.1) mg/dL Magnesium 2.3 (1.8-2.4) mg/dl C-Reactive Protein 23.7 H* (<1.0) mg/dL Pb Results Last 24 Hours: Microbiology 10/09/18 05:30 Aerobic Blood Culture - Preliminary Blood - Venous - Lab Draw NO GROWTH AFTER 1 DAY Anaerobic Blood Culture - Preliminary NO GROWTH AFTER 1 DAY 10/09/18 05:18 Aerobic Blood Culture - Preliminary Blood - Venous NO GROWTH AFTER 1 DAY Anaerobic Blood Culture - Preliminary NO GROWTH AFTER 1 DAY Med Orders - Current: Current Medications Acetaminophen (Tylenol) 650 mg PO Q4H PRN PRN Reason: Pain/Fever Last Admin: 10/09/18 09:02 Dose: 650 mg Hydrocodone Bitart/Acetaminophen ([place] 325-5 Mg) 1 tab PO Q4H PRN PRN Reason: Pain (moderate 4-6) Last Admin: 10/09/18 13:10 Dose: 1 tab Albuterol/Ipratropium (Duoneb 3.0-0.5 Mg/3 Ml) 3 ml NEB Q4H PRN PRN Reason: Shortness Of Breath/wheezing Last Admin: 10/10/18 03:24 Dose: 3 ml Albuterol/Ipratropium (Duoneb 3.0-0.5 Mg/3 Ml) 3 ml NEB BIDRT [facility] Last Admin: 10/10/18 05:28 Dose: 3 ml Azithromycin (Zithromax) 250 mg PO DAILY@1100 [facility] Stop: 10/11/18 11:01 Last Admin: 10/10/18 10:48 Dose: 250 mg Bisacodyl (Dulcolax) 5 mg PO DAILY PRN PRN Reason: Constipation Last Admin: 10/09/18 20:46 Dose: 5 mg Clonazepam (Klonopin) 0.5 mg PO BEDTIME [facility] Last Admin: 10/09/18 20:47 Dose: 0.5 mg Docusate Sodium (Colace) 100 mg PO BID PRN PRN Reason: Constipation Glycopyrrolate (Seebri Neohaler) 15.6 mcg IH BID [facility] Last Admin: 10/10/18 09:04 Dose: 1 capful Dextrose/Sodium Chloride (Dextrose 5%-Normal Saline) 1,000 mls @ 999 mls/hr IV ASDIRECTED [facility] Last Admin: 10/09/18 05:29 Dose: 999 mls/hr Lamotrigine (Lamotrigine) 400 mg PO BEDTIME [facility] Last Admin: 10/09/18 20:46 Dose: 400 mg Methylprednisolone Sodium Succinate (Solu-Medrol) 60 mg IVPUSH Q6H [facility] Last Admin: 10/10/18 10:34 Dose: 60 mg Miscellaneous Information (Remove Patch) 1 ea TRDERM Q24H [facility] Last Admin: 10/09/18 23:44 Dose: Not Given Montelukast Sodium (Singulair) 10 mg PO BEDTIME [facility] Last Admin: 10/09/18 20:46 Dose: 10 mg Nicotine (Habitrol) 21 mg TRDERM DAILY PRN PRN Reason: Nicotine Dependence Ondansetron HCl (Zofran) 4 mg IV Q6H PRN PRN Reason: Nausea/Vomiting Oseltamivir Phosphate (Tamiflu) 75 mg PO BID [facility] Stop: 10/14/18 09:01 Last Admin: 10/10/18 08:03 Dose: 75 mg Escitalopram 20 Mg (Tab Ptom) 0 each PO DAILY [facility] Fluticasone Furoate [Arnuity Ellipta 100mcg] Ptom 0 each INH DAILY [facility] Last Admin: 10/10/18 09:04 Dose: 1 each Polyethylene Glycol (Miralax) 17 gm PO DAILY PRN PRN Reason: Constipation Propranolol HCl (Inderal La) 120 mg PO DAILY [facility] Last Admin: 10/10/18 08:04 Dose: 120 mg Senna/Docusate Sodium (Senna Plus) 1 tab PO BID PRN PRN Reason: Constipation Sumatriptan Succinate (Imitrex) 50 mg PO ASDIRECTED PRN PRN Reason: migraines Last Admin: 10/10/18 08:10 Dose: 50 mg Terbutaline Sulfate (Brethine) 2.5 mg PO BID [facility] Stop: 10/10/18 21:01 Last Admin: 10/10/18 08:04 Dose: 2.5 mg Discontinued Medications Albuterol/Ipratropium (Duoneb 3.0-0.5 Mg/3 Ml) 3 ml NEB ONETIME ONE Stop: 10/09/18 05:02 Last Admin: 10/09/18 05:09 Dose: 3 ml Glycopyrrolate (Seebri Neohaler) 15.6 mcg IH ONETIME ONE Stop: 10/09/18 15:31 Last Admin: 10/09/18 19:18 Dose: Not Given Hydralazine HCl (Apresoline) 20 mg IVPUSH Q4H PRN PRN Reason: Hypertension Stop: 10/10/18 12:30 Levofloxacin/Dextrose 750 mg/ (Premix) 150 mls @ 100 mls/hr IV ONETIME ONE Stop: 10/09/18 07:16 Last Admin: 10/09/18 05:51 Dose: 100 mls/hr Azithromycin 250 mg/ Sodium (Chloride) 250 mls @ 250 mls/hr IV ONETIME ONE Stop: 10/09/18 11:59 Last Admin: 10/09/18 11:35 Dose: 250 mls/hr Magnesium Sulfate 2 gm/ Premix 50 mls @ 25 mls/hr IV ONETIME ONE Stop: 10/09/18 14:59 Last Admin: 10/09/18 13:01 Dose: 25 mls/hr Lorazepam (Ativan) 1 mg IV Q6H PRN PRN Reason: Anxiety Stop: 10/10/18 12:30 Magnesium Sulfate (Pharmacy To Dose - Magnesium Replacement) 0 dose .XX ASDIRECTED PRN PRN Reason: RX TO WATCH MAG Stop: 10/10/18 12:30 Metoprolol Tartrate (Lopressor) 5 mg IVPUSH Q4H PRN PRN Reason: Tachycardia Stop: 10/10/18 12:30 Morphine Sulfate (Morphine) 2 mg IVPUSH Q2H PRN PRN Reason: Dyspnea Stop: 10/10/18 10:10 Oseltamivir Phosphate (Tamiflu) 75 mg PO ONETIME ONE Stop: 10/09/18 05:54 Last Admin: 10/09/18 06:00 Dose: 75 mg Escitalopram 20 Mg (Tab Ptom) 0 each PO ONETIME ONE Stop: 10/09/18 19:16 Last Admin: 10/09/18 20:45 Dose: 1 each Potassium Chloride (Pharmacy To Dose - Potassium Replacement) 0 dose .XX ASDIRECTED PRN PRN Reason: RX TO WATCH K Stop: 10/10/18 12:30 Terbutaline Sulfate (Brethine) 2.5 mg PO NOW STA Stop: 10/09/18 15:06 Last Admin: 10/09/18 16:05 Dose: 2.5 mg Tiotropium [place] (Spiriva Handihaler) 18 mcg INH NOW STA Stop: 10/09/18 15:05 Last Admin: 10/10/18 09:03 Dose: Not Given - My Orders Last 24 Hours: My Active Orders 10/09/18 14:00 Patient's Own Medication [Ptom] 0 each INH DAILY 10/09/18 15:04 RT Aerosol Therapy [RC] ASDIRECTED RT Post Treatment Assessment [RC] Click to Edit RT Pre-Treatment Assessment [RC] Click to Edit 10/09/18 16:00 methylPREDNISolone Sod Succ [Solu-MEDROL] 60 mg IVPUSH Q6H 10/09/18 21:00 Albuterol/Ipratropium [DuoNeb 3.0-0.5 MG/3 ML] 3 ml NEB BIDRT ClonazePAM [KlonoPIN] 0.5 mg PO BEDTIME Montelukast [Singulair] 10 mg PO BEDTIME Oseltamivir [Tamiflu] 75 mg PO BID Remove Patch 1 ea TRDERM Q24H Terbutaline [Brethine] 2.5 mg PO BID lamoTRIgine 400 mg PO BEDTIME 10/09/18 23:01 Nicotine [Habitrol] 21 mg TRDERM DAILY PRN 10/10/18 09:00 Glycopyrrolate [Seebri Neohaler] 15.6 mcg IH BID Propranolol [Inderal LA] 120 mg PO DAILY 10/10/18 09:55 Patient Status [ADT] Routine 10/10/18 11:00 Azithromycin [Zithromax] 250 mg PO DAILY@1100 10/10/18 12:05 Code Status [Resuscitation Status] Routine 10/10/18 14:00 Patient's Own Medication [Ptom] 0 each PO DAILY 10/11/18 05:11 BASIC METABOLIC PANEL,BMP [CHEM] AM C-REACTIVE PROTEIN [CHEM] AM CBC WITH AUTO DIFF [HEME] AM MAGNESIUM [CHEM] AM 10/12/18 05:11 BASIC METABOLIC PANEL,BMP [CHEM] AM C-REACTIVE PROTEIN [CHEM] AM CBC WITH AUTO DIFF [HEME] AM MAGNESIUM [CHEM] AM - Plan Plan:: Assessment/Plan: Acute: Influenza B Infection - Influenza Screening Pos - Tamiflu 75 mg po BID for 5 days - Supportive Care and Supplemental O2 COPD Exacerbation - Carries a hx/o COPD - Risk Factors: Active smoker 1ppd for 16 years - Likely 2/2 Acute Viral Infection - IV Solumedrol, Bronchodilators, IV Magnesium, Decongestant/Expectorant - Strep pneumoniae, Mycoplasma pneumoniae, Sputum Cx studies - BIPAP and CXR Chronic: Impaired Vision COPD Hx/o CVA Migraines Hx/o Cognitive Disorder Allergy Nicotine Dependence Plan: Admit to ICU Routine AM Labs Resume Some Home Meds RT/PT/OT assess and treate DVT/GI PPx SW/CM for d/c planning Code status: 1
[2018-10-10] MEDS: ESCITALOPRAM 20 MG PO SCH (15:06)
[2018-10-10] MEDS: Montelukast 10 MG Tab PO SCH (21:03)
[2018-10-10] MEDS: lamoTRIgine 100 MG Tab PO SCH (21:04)
[2018-10-10] MEDS: ClonazePAM 0.5 MG Tab PO SCH (21:04)
[2018-10-11] MEDS: methylPREDNISolone Sodium Succinate 40 MG/1 ML SDV IVPUSH SCH ×4 (05:06→21:20)
[2018-10-11] MEDS: Albuterol/Ipratropium 3.0-0.5 MG/3 ML Neb Soln NEB SCH ×2 (05:57→20:15)
--- NOTE | 2018-10-11 07:57 | PCM.PN ---
- General Info Date of Service: 10/11/18 Admission Dx/Problem (Free Text): Admission Diagnosis/Problem Admission Diagnosis/Problem Respiratory failure with hypoxia Subjective Update: Follow Up Functional Status: Reports: Pain Controlled, Tolerating Diet, Ambulating, Urinating. Denies: New Symptoms - Review of Systems General: Denies: Fever, Chills HEENT: Reports: No Symptoms Pulmonary: Reports: Shortness of Breath, Cough, Sputum Cardiovascular: Reports: Dyspnea on Exertion. Denies: Chest Pain Gastrointestinal: Denies: Abdominal Pain, Nausea, Vomiting Genitourinary: Reports: No Symptoms Musculoskeletal: Reports: No Symptoms Skin: Denies: Cyanosis, Mottled, Pallor, Diaphoresis, Bruising Neurological: Reports: Weakness. Denies: Confusion, Gait Disturbance Psychiatric: Denies: Depression, Agitation, Hallucinations Systems Review Comment:: No overnight or acute issues. She is doing fairly well. She is now at 3-4L NC. Her WBC is up at 19.82 but her CRP is 12.3. She is tolerating beside physical activity. - Patient Data Vitals - Most Recent: Last Vital Signs Temp 36.7 C 10/11/18 03:00 Pulse 65 10/11/18 03:00 Resp 20 10/11/18 03:00 BP 111/73 10/11/18 03:00 Pulse Ox 91 L 10/11/18 05:59 Weight - Most Recent: 90.446 kg I&O - Last 24 Hours: Intake & Output 10/10/18 10/11/18 10/11/18 22:59 06:59 14:59 Intake Total 970 400 Output Total 400 Balance 570 400 Lab Results Last 24 Hours: Laboratory Results - last 24 hr 10/11/18 10/11/18 Range/Units 05:02 05:02 WBC 19.82 H (3.98-10.04) K/mm3 RBC 4.34 (3.98-5.22) M/mm3 Hgb 13.4 (11.2-15.7) gm/L Hct 41.3 (34.1-44.9) % MCV 95.2 H (79.4-94.8) fl MCH 30.9 (25.6-32.2) pg MCHC 32.4 (32.2-35.5) g/dl RDW Std Deviation 51.8 H (36.4-46.3) fL Plt Count 238 (182-369) K/mm3 MPV 9.4 (9.4-12.3) fl Neut % (Auto) 85.5 H (34.0-71.1) % Lymph % (Auto) 8.1 L (19.3-51.7) % Wood % (Auto) 6.0 (4.7-12.5) % Eos % (Auto) 0 L (0.7-5.8) Baso % (Auto) 0.1 (0.1-1.2) % Neut # (Auto) 16.96 H (1.56-6.13) K/mm3 Lymph # (Auto) 1.60 (1.18-3.74) K/mm3 Wood # (Auto) 1.18 H (0.24-0.36) K/mm3 Eos # (Auto) 0.00 L (0.04-0.36) K/mm3 Baso # (Auto) 0.02 (0.01-0.08) K/mm3 Manual Slide Review Abnormal smear Sodium 141 (136-145) mEq/L Potassium 4.3 (3.5-5.1) mEq/L Chloride 106 (98-107) mEq/L Carbon Dioxide 27 (21-32) mEq/L Anion Gap 12.3 (5-15) BUN 18 (7-18) mg/dL Creatinine 0.8 (0.55-1.02) mg/dL Est Cr Clr Drug Dosing 67.00 mL/min Estimated GFR (MDRD) > 60 (>60) mL/min BUN/Creatinine Ratio 22.5 H (14-18) Glucose 156 H (74-106) mg/dL Calcium 9.5 (8.5-10.1) mg/dL Magnesium 1.9 (1.8-2.4) mg/dl C-Reactive Protein 12.3 H* (<1.0) mg/dL Pb Results Last 24 Hours: Microbiology 10/09/18 05:30 Aerobic Blood Culture - Preliminary Blood - Venous - Lab Draw NO GROWTH AFTER 2 DAYS Anaerobic Blood Culture - Preliminary NO GROWTH AFTER 2 DAYS 10/09/18 05:18 Aerobic Blood Culture - Preliminary Blood - Venous NO GROWTH AFTER 2 DAYS Anaerobic Blood Culture - Preliminary NO GROWTH AFTER 2 DAYS Med Orders - Current: Current Medications Acetaminophen (Tylenol) 650 mg PO Q4H PRN PRN Reason: Pain/Fever Last Admin: 10/09/18 09:02 Dose: 650 mg Hydrocodone Bitart/Acetaminophen (Apex 325-5 Mg) 1 tab PO Q4H PRN PRN Reason: Pain (moderate 4-6) Last Admin: 10/09/18 13:10 Dose: 1 tab Albuterol/Ipratropium (Duoneb 3.0-0.5 Mg/3 Ml) 3 ml NEB Q4H PRN PRN Reason: Shortness Of Breath/wheezing Last Admin: 10/10/18 14:32 Dose: 3 ml Albuterol/Ipratropium (Duoneb 3.0-0.5 Mg/3 Ml) 3 ml NEB BIDRT [facility] Last Admin: 10/11/18 05:57 Dose: 3 ml Azithromycin (Zithromax) 250 mg PO DAILY@1100 [facility] Stop: 10/11/18 11:01 Last Admin: 10/10/18 10:48 Dose: 250 mg Bisacodyl (Dulcolax) 5 mg PO DAILY PRN PRN Reason: Constipation Last Admin: 10/09/18 20:46 Dose: 5 mg Clonazepam (Klonopin) 0.5 mg PO BEDTIME [facility] Last Admin: 10/10/18 21:04 Dose: 0.5 mg Docusate Sodium (Colace) 100 mg PO BID PRN PRN Reason: Constipation Glycopyrrolate (Seebri Neohaler) 15.6 mcg IH BID [facility] Last Admin: 10/10/18 20:59 Dose: 1 cap Dextrose/Sodium Chloride (Dextrose 5%-Normal Saline) 1,000 mls @ 999 mls/hr IV ASDIRECTED [facility] Last Admin: 10/09/18 05:29 Dose: 999 mls/hr Lamotrigine (Lamotrigine) 400 mg PO BEDTIME [facility] Last Admin: 10/10/18 21:04 Dose: 400 mg Methylprednisolone Sodium Succinate (Solu-Medrol) 60 mg IVPUSH Q6H [facility] Last Admin: 10/11/18 05:06 Dose: 60 mg Miscellaneous Information (Remove Patch) 1 ea TRDERM Q24H [facility] Last Admin: 10/10/18 21:08 Dose: Not Given Montelukast Sodium (Singulair) 10 mg PO BEDTIME [facility] Last Admin: 10/10/18 21:03 Dose: 10 mg Nicotine (Habitrol) 21 mg TRDERM DAILY PRN PRN Reason: Nicotine Dependence Ondansetron HCl (Zofran) 4 mg IV Q6H PRN PRN Reason: Nausea/Vomiting Oseltamivir Phosphate (Tamiflu) 75 mg PO BID [facility] Stop: 10/14/18 09:01 Last Admin: 10/10/18 21:04 Dose: 75 mg Escitalopram 20 Mg (Tab Ptom) 0 each PO DAILY [facility] Last Admin: 10/10/18 15:06 Dose: 1.5 each Fluticasone Furoate [Arnuity Ellipta 100mcg] Ptom 0 each INH DAILY [facility] Last Admin: 10/10/18 09:04 Dose: 1 each Polyethylene Glycol (Miralax) 17 gm PO DAILY PRN PRN Reason: Constipation Propranolol HCl (Inderal La) 120 mg PO DAILY [facility] Last Admin: 10/10/18 08:04 Dose: 120 mg Senna/Docusate Sodium (Senna Plus) 1 tab PO BID PRN PRN Reason: Constipation Sumatriptan Succinate (Imitrex) 50 mg PO ASDIRECTED PRN PRN Reason: migraines Last Admin: 10/10/18 08:10 Dose: 50 mg Discontinued Medications Albuterol/Ipratropium (Duoneb 3.0-0.5 Mg/3 Ml) 3 ml NEB ONETIME ONE Stop: 10/09/18 05:02 Last Admin: 10/09/18 05:09 Dose: 3 ml Glycopyrrolate (Seebri Neohaler) 15.6 mcg IH ONETIME ONE Stop: 10/09/18 15:31 Last Admin: 10/09/18 19:18 Dose: Not Given Hydralazine HCl (Apresoline) 20 mg IVPUSH Q4H PRN PRN Reason: Hypertension Stop: 10/10/18 12:30 Levofloxacin/Dextrose 750 mg/ (Premix) 150 mls @ 100 mls/hr IV ONETIME ONE Stop: 10/09/18 07:16 Last Admin: 10/09/18 05:51 Dose: 100 mls/hr Azithromycin 250 mg/ Sodium (Chloride) 250 mls @ 250 mls/hr IV ONETIME ONE Stop: 10/09/18 11:59 Last Admin: 10/09/18 11:35 Dose: 250 mls/hr Magnesium Sulfate 2 gm/ Premix 50 mls @ 25 mls/hr IV ONETIME ONE Stop: 10/09/18 14:59 Last Admin: 10/09/18 13:01 Dose: 25 mls/hr Lorazepam (Ativan) 1 mg IV Q6H PRN PRN Reason: Anxiety Stop: 10/10/18 12:30 Magnesium Sulfate (Pharmacy To Dose - Magnesium Replacement) 0 dose .XX ASDIRECTED PRN PRN Reason: RX TO WATCH MAG Stop: 10/10/18 12:30 Metoprolol Tartrate (Lopressor) 5 mg IVPUSH Q4H PRN PRN Reason: Tachycardia Stop: 10/10/18 12:30 Morphine Sulfate (Morphine) 2 mg IVPUSH Q2H PRN PRN Reason: Dyspnea Stop: 10/10/18 10:10 Oseltamivir Phosphate (Tamiflu) 75 mg PO ONETIME ONE Stop: 10/09/18 05:54 Last Admin: 10/09/18 06:00 Dose: 75 mg Escitalopram 20 Mg (Tab Ptom) 0 each PO ONETIME ONE Stop: 10/09/18 19:16 Last Admin: 10/09/18 20:45 Dose: 1 each Potassium Chloride (Pharmacy To Dose - Potassium Replacement) 0 dose .XX ASDIRECTED PRN PRN Reason: RX TO WATCH K Stop: 10/10/18 12:30 Terbutaline Sulfate (Brethine) 2.5 mg PO BID [facility] Stop: 10/10/18 21:01 Last Admin: 10/10/18 21:04 Dose: 2.5 mg Terbutaline Sulfate (Brethine) 2.5 mg PO NOW STA Stop: 10/09/18 15:06 Last Admin: 10/09/18 16:05 Dose: 2.5 mg Tiotropium [place] (Spiriva Handihaler) 18 mcg INH NOW STA Stop: 10/09/18 15:05 Last Admin: 10/10/18 09:03 Dose: Not Given - Exam Quality Assessment: Supplemental Oxygen General: Alert, Oriented, Cooperative, No Acute Distress, Other (Obese) HEENT: Pupils Equal, Pupils Reactive, Mucous Membr. Moist/Ozone Neck: Supple, Other (no accessory muscle use) Lungs: Normal Respiratory Effort, Rhonchi, Wheezing (mild-mod expiratory wheezing) Cardiovascular: Regular Rate, Regular Rhythm GI/Abdominal Exam: Normal Bowel Sounds, Soft, Non-Tender, No Organomegaly, No Abnormal Bruit, No Mass, Pelvis Stable (Female) Exam: Deferred Back Exam: Normal Inspection, Full Range of Motion Extremities: Normal Inspection, Normal Range of Motion, Non-Tender, No Pedal Edema, Normal Capillary Refill Peripheral Pulses: 2+: Dorsalis Pedis (L), Dorsalis Pedis (R) Skin: Warm, Dry, Intact Neurological: No New Focal Deficit, Normal Gait Psy/Mental Status: Alert, Normal Affect, Normal Mood. No: Anxious, Depressed - Problem List Review Problem List Initiated/Reviewed/Updated: Yes - My Orders Last 24 Hours: My Active Orders 10/10/18 09:00 Glycopyrrolate [Seebri Neohaler] 15.6 mcg IH BID Propranolol [Inderal LA] 120 mg PO DAILY 10/10/18 09:55 Patient Status [ADT] Routine 10/10/18 11:00 Azithromycin [Zithromax] 250 mg PO DAILY@1100 10/10/18 12:05 Code Status [Resuscitation Status] Routine 10/10/18 14:00 Patient's Own Medication [Ptom] 0 each PO DAILY 10/12/18 05:11 BASIC METABOLIC PANEL,BMP [CHEM] AM C-REACTIVE PROTEIN [CHEM] AM CBC WITH AUTO DIFF [HEME] AM MAGNESIUM [CHEM] AM - Plan Plan:: Assessment/Plan: Acute: Influenza B Infection, Stable - Influenza Screening Pos - Tamiflu 75 mg po BID for 5 days - Supportive Care and Supplemental O2 COPD Exacerbation, Continues to Improve - Carries a hx/o COPD - Risk Factors: Active smoker 1ppd for 16 years - Likely 2/2 Acute Viral Infection - Cut down IV Solumedrol to BID, Continue Bronchodilators, IV Magnesium, Decongestant/Expectorant - Strep pneumoniae, Mycoplasma pneumoniae, Sputum Cx studies - Now 3-4L NC - Blood Cx negative - CXR as indicated Hypoxia - 3-4L NC sating at 88-93% - IS/FV as directed - Ambulate as tolerated Chronic: Impaired Vision COPD/Asthma Hx/o CVA Migraines Hx/o Cognitive Disorder Allergy Nicotine Dependence Plan: She is clinically stable Routine AM Labs RT/PT/OT assess and treat DVT/GI PPx SW/CM for d/c planning Encourage to use FV/IS as directed Ambulated as tolerated Goal: Titrate to come off supplemental O2 Code status: 1 Possible discharge in AM
[2018-10-11] MEDS: FLUTICASONE FUROATE INH SCH (08:28)
[2018-10-11] MEDS: Glycopyrrolate 15.6 MCG Cap.W.Dev Kit of 6 IH SCH ×2 (08:28→20:16)
--- NOTE | 2018-10-11 09:20 | CR ---
Chest: Frontal view of the chest was obtained. Comparison: Prior chest x-ray of 10/09/18. Mild atelectasis is seen within both lung bases. Lungs otherwise are clear. Heart size and mediastinum are within normal limits for portable technique. Bony structures show minimal scoliosis within the spine. Pressure: 1. Mild atelectasis. Nothing acute is identified on portable chest x-ray. Diagnostic code #2
[2018-10-11] MEDS: Azithromycin 250 MG Tab PO SCH (10:26)
[2018-10-11] MEDS: Propranolol 60 MG Cap.ER PO SCH (10:26)
[2018-10-11] MEDS: Oseltamivir 75 MG Cap PO SCH ×2 (10:26→20:19)
[2018-10-11] MEDS: ESCITALOPRAM 20 MG PO SCH (10:27)
[2018-10-11] MEDS: ClonazePAM 0.5 MG Tab PO SCH (20:18)
[2018-10-11] MEDS: Montelukast 10 MG Tab PO SCH (20:18)
[2018-10-11] MEDS: lamoTRIgine 100 MG Tab PO SCH (20:18)
[2018-10-12] MEDS: Albuterol/Ipratropium 3.0-0.5 MG/3 ML Neb Soln NEB SCH (05:58)
[2018-10-12] MEDS: Glycopyrrolate 15.6 MCG Cap.W.Dev Kit of 6 IH SCH (08:24)
[2018-10-12] MEDS: FLUTICASONE FUROATE INH SCH (08:25)
[2018-10-12 08:27] VITALS: BP 115/74
[2018-10-12] MEDS: Propranolol 60 MG Cap.ER PO SCH (08:36)
[2018-10-12] MEDS: Oseltamivir 75 MG Cap PO SCH (08:36)
[2018-10-12] MEDS: ESCITALOPRAM 20 MG PO SCH (08:39)
[2018-10-12] MEDS: methylPREDNISolone Sodium Succinate 40 MG/1 ML SDV IVPUSH SCH (08:41)
== END 2018-10-12 16:38 | disposition home or self-care (01) | DRG 193 ==
LOC: JD.ED 04:52 → JD.ICU 06:54 → JD.MS 10-11 11:08
PROVIDERS: ADMIT Internal Medicine; ATTEND Internal Medicine
PROC: 5A09357 Assistance with Respiratory Ventilation, Less than 24 Consecutive Hours, Continuous Positive Airway Pressure (ICD-10-PCS; principal; 2018-10-09)
DX: J10.08 Influenza due to other identified influenza virus with other specified pneumonia (principal); J18.0 Bronchopneumonia, unspecified organism; J10.1 Influenza due to other identified influenza virus with other respiratory manifestations; J44.0 Chronic obstructive pulmonary disease with (acute) lower respiratory infection; J96.01 Acute respiratory failure with hypoxia; J44.1 Chronic obstructive pulmonary disease with (acute) exacerbation; F17.210 Nicotine dependence, cigarettes, uncomplicated; H54.7 Unspecified visual loss; G43.909 Migraine, unspecified, not intractable, without status migrainosus; R32 Unspecified urinary incontinence; F41.9 Anxiety disorder, unspecified; F32.9 Major depressive disorder, single episode, unspecified; F03.90 Unspecified dementia, unspecified severity, without behavioral disturbance, psychotic disturbance, mood disturbance, and anxiety; Z88.5 Allergy status to narcotic agent; Z88.2 Allergy status to sulfonamides; R06.2 Wheezing; R42 Dizziness and giddiness; R05 Cough; R06.03 Acute respiratory distress; R50.9 Fever, unspecified; R06.00 Dyspnea, unspecified; R06.01 Orthopnea; R07.9 Chest pain, unspecified; R53.1 Weakness; R63.0 Anorexia; R53.81 Other malaise; R06.02 Shortness of breath; Z88.8 Allergy status to other drugs, medicaments and biological substances; Z79.899 Other long term (current) drug therapy; Z86.73 Personal history of transient ischemic attack (TIA), and cerebral infarction without residual deficits; Z86.14 Personal history of Methicillin resistant Staphylococcus aureus infection; Z90.49 Acquired absence of other specified parts of digestive tract; Z98.891 History of uterine scar from previous surgery
CPT/HCPCS: 36415; 36600 ×2; 71045; 80053; 82553; 82803 ×2; 83605; 83735; 83880; 84484; 85007; 85027; 86140; 86738; 87040 ×2; 87804 ×2; 93005; 94640; 94660; 96365; 99285; A9270; J1956; J7042; 80048; 85025; 87070; 87205; 93010; 94668; 94761; 97110-GP; 97112-GP; 97116-GP; 97162-GP; 97165-GO; 97530-GP; J0456; J2920; J3475; J7050; J7620-GY